=== PATIENT | male | born 1955 | race Caucasian/White ===

== ENCOUNTER → 2016-08-06 | Outpatient (CLI) | payer BC ==
[~2016-08-06] MED LIST: ASPEC81 PO; ATOR-26 PO; CLOP1TAB15 PO; PANT40TA PO; RANI300T2 PO
[2016-08-06 12:50] LABS: HEMATOCRIT 39.3 % (42-52); MEAN CELL VOLUME 89.9 fL (80-100); MEAN CORPUSCULAR HEMOGLOBIN 31.1 pg (25-34); MEAN CORPUSCULAR HGB CONC 34.6 g/dl (32-36); MEAN PLATELET VOLUME 10.4 fL (7.4-10.4); PLATELET COUNT 262 K/uL (130-400); RED BLOOD COUNT 4.37 M/uL (4.7-6.1); WHITE BLOOD COUNT 5.93 K/uL (4.8-10.8)
[2016-08-06 12:53] LABS: ALT/SGPT 24 U/L (12-78); AST/SGOT 13 U/L (15-37); BLOOD UREA NITROGEN 9 mg/dl (7-18); BUN/CREATININE RATIO 11.1 (10-20); CALCIUM 8.8 mg/dl (8.5-10.1); CARBON DIOXIDE 27 mmol/L (21-32); CHLORIDE 108 mmol/L (98-107); CREATININE 0.79 mg/dl (0.60-1.40); GLUCOSE 135 mg/dl (70-99); POTASSIUM 3.9 mmol/L (3.5-5.1); SODIUM 143 mmol/L (136-145)
[2016-08-06 12:56] LABS: CHOLESTEROL 97 mg/dl (0-200); CHOLESTEROL/HDL RATIO 3.2; HDL CHOLESTEROL 30 mg/dl; LDL CHOLESTEROL CALCULATED 47 mg/dl; TRIGLYCERIDES 98 mg/dl (0-150); VERY LOW DENSITY LIPOPROT CALC 20 mg/dl
[2016-08-06 13:11] LABS: ESTIMATED AVERAGE GLUCOSE 137 mg/dl; HA1C FLAG Normal (Normal)
== END | disposition home or self-care (01) ==
LOC: C.LABBFT 07:32
PROVIDERS: ATTEND Internal Medicine
DX: I73.9 Peripheral vascular disease, unspecified (principal); E78.00 Pure hypercholesterolemia, unspecified; R73.01 Impaired fasting glucose; C34.90 Malignant neoplasm of unspecified part of unspecified bronchus or lung

== ENCOUNTER → 2016-10-26 | Outpatient (CLI) | payer BC ==
--- NOTE | 2016-10-26 07:46 | DIAGNOSTIC IMAGING REPORT ---
CHEST CT WITHOUT CONTRAST CT DOSE: 372.11 mGy.cm HISTORY: I73.9 PAD (peripheral artery disease)R91.1 Solitary pulmonary nodule TECHNIQUE: Multiaxial CT images of the chest were performed without contrast. COMPARISON: Chest CT 04/27/2016. FINDINGS: Postoperative changes consistent with prior left upper lobectomy. Peripheral scarlike densities within the left midlung zone are similar to the prior study. Faint patchy area of groundglass densities are seen within the base of the left lower lobe. There is a 5 mm groundglass nodule within the right lung apex on image 72. No pleural effusions. No pneumothorax. The central airways are patent. Left-sided thoracotomy changes are again noted. Normal adrenal glands and spleen. A few small hypodense lesions within the liver remain stable. No mediastinal or hilar lymphadenopathy. IMPRESSION: 1. Faint patchy area of groundglass densities within the base of the left lower lobe and a new 5 mm groundglass nodule within the right lung apex. This may represent mild infectious change. Six-month follow-up is recommended to ensure resolution. 2. Postoperative changes consistent with left upper lobectomy. Stable peripheral scarlike densities within the left midlung zone. Electronically signed by: Kamran Pedraza M.D. 10/26/2016 7:44 AM Dictated Date/Time: 10/26/2016 7:38 AM
== END | disposition home or self-care (01) ==
LOC: C.CTS 06:55
PROVIDERS: ATTEND Surgery
DX: C34.90 Malignant neoplasm of unspecified part of unspecified bronchus or lung (principal); I73.9 Peripheral vascular disease, unspecified; R91.1 Solitary pulmonary nodule; Z85.118 Personal history of other malignant neoplasm of bronchus and lung

== ENCOUNTER → 2017-01-29 | Outpatient (CLI) | payer BC ==
[2017-01-29 12:30] LABS: HEMATOCRIT 42.5 % (42-52); MEAN CELL VOLUME 94.9 fL (80-100); MEAN CORPUSCULAR HEMOGLOBIN 30.6 pg (25-34); MEAN CORPUSCULAR HGB CONC 32.2 g/dl (32-36); MEAN PLATELET VOLUME 10.1 fL (7.4-10.4); PLATELET COUNT 247 K/uL (130-400); RED BLOOD COUNT 4.48 M/uL (4.7-6.1); WHITE BLOOD COUNT 5.79 K/uL (4.8-10.8)
[2017-01-29 13:00] LABS: ESTIMATED AVERAGE GLUCOSE 134 mg/dl; HA1C FLAG Normal (Normal)
[2017-01-29 13:25] LABS: ALB/GLOB RATIO 1.3 (0.9-2); ALKALINE PHOSPHATASE 65 U/L (45-117); ALT/SGPT 31 U/L (12-78); AST/SGOT 21 U/L (15-37); BLOOD UREA NITROGEN 11 mg/dl (7-18); BUN/CREATININE RATIO 13.3 (10-20); CALCIUM 9.1 mg/dl (8.5-10.1); CARBON DIOXIDE 30 mmol/L (21-32); CHLORIDE 108 mmol/L (98-107); CHOLESTEROL 115 mg/dl (0-200); CREATININE 0.84 mg/dl (0.60-1.40); GLUCOSE 113 mg/dl (70-99); POTASSIUM 4.4 mmol/L (3.5-5.1); SODIUM 139 mmol/L (136-145); TRIGLYCERIDES 95 mg/dl (0-150); VERY LOW DENSITY LIPOPROT CALC 19 mg/dl
[2017-01-29 13:30] LABS: CHOLESTEROL/HDL RATIO 3.8; HDL CHOLESTEROL 30 mg/dl; LDL CHOLESTEROL CALCULATED 66 mg/dl
== END | disposition home or self-care (01) ==
LOC: C.LABBFT 08:41
PROVIDERS: ATTEND Internal Medicine
DX: R73.01 Impaired fasting glucose (principal); E78.00 Pure hypercholesterolemia, unspecified; I73.9 Peripheral vascular disease, unspecified; C34.90 Malignant neoplasm of unspecified part of unspecified bronchus or lung; Z12.5 Encounter for screening for malignant neoplasm of prostate

== ENCOUNTER → 2017-04-29 | Outpatient (CLI) | payer BC ==
--- NOTE | 2017-04-29 07:59 | DIAGNOSTIC IMAGING REPORT ---
CT SCAN OF THE CHEST WITHOUT IV CONTRAST CLINICAL HISTORY: Follow-up lung cancer. COMPARISON STUDY: Chest CT scans dated 10/26/2016 and 01/01/2015. TECHNIQUE: CT scan of the thorax was performed from the thoracic inlet to the upper abdomen. Images are reviewed in the axial, sagittal, and coronal planes. IV contrast was not administered for this examination as per the referring clinician. A dose lowering technique was utilized adhering to the principles of ALARA. CT DOSE: 405.55 mGy.cm FINDINGS: Thyroid: Imaged portions of the thyroid gland are normal in size and attenuation. Thoracic aorta: There is atherosclerotic calcification of the thoracic aorta, which is normal in caliber and demonstrates bovine variant arch anatomy. Heart: The heart is normal in size and without pericardial effusion. Lungs and pleural spaces: Mild emphysema is observed. There is volume loss and postoperative change in the left upper lung consistent with previous surgical resection. No airspace consolidation is seen typical for pneumonia and there is no pleural effusion. The trachea and central airways are clear. Subpleural reticulation and fibrosis in the left upper lobe is similar to previous and likely represents treatment related change. No recurrent or residual pulmonary lesion is identified. A 2 mm left lower lobe nodule seen on image #179 and a 3 mm right middle lobe pulmonary nodule seen on image #193 have been present dating back to 2014 and are of doubtful significance. The 5 mm apical groundglass density seen on 10/26/2016 is most completely resolved. There is a 2 mm nodule at this site presently (axial image #68). Mediastinum: There is no mediastinal lymphadenopathy. Jaimie: Not well assessed without IV contrast. Axillae: There is no axillary lymphadenopathy. Upper abdomen: A subcentimeter hypodensity in the left hepatic lobe likely represents a cyst but is too small for definitive characterization. This is unchanged over multiple prior studies. The partially imaged kidneys symmetric cortical atrophy. No adrenal lesion is seen. Skeletal structures: The skeletal structures are osteopenic. Degenerative change is noted in the thoracic spine. Postoperative change is seen in the left sided ribs. No lytic or blastic bony lesions are seen. IMPRESSION: 1. There is no convincing evidence of recurrent or metastatic disease in the chest. 2. Mild emphysema with postoperative change in the left upper lobe as above. 3. Subpleural reticulation/fibrosis in the anterior left lung is unchanged from previous and likely represents treatment related change. 4. No airspace consolidation is seen typical for pneumonia and there is no pleural effusion. 5. Additional findings as above. Electronically signed by: Ruddy Nino M.D. 04/29/2017 7:58 AM Dictated Date/Time: 04/29/2017 7:52 AM
== END | disposition home or self-care (01) ==
LOC: C.CTS 06:23
PROVIDERS: ATTEND Surgery
DX: C34.90 Malignant neoplasm of unspecified part of unspecified bronchus or lung (principal)

== ENCOUNTER 2017-08-18 17:19 | Emergency (ER) | payer BC, OTHER ==
[~2017-08-18] VITALS: Ht 170.2 cm; Wt 86.7 kg
[2017-08-18 17:24] VITALS: TEMP 36.8; Ht 170.2 cm; Wt 86.7 kg
[2017-08-18] MEDS ORDERED: ONDANSETRON INJ 2 MG/ML 2 ML VIAL IV STA (17:47)
[2017-08-18] MEDS ORDERED: GI COCKTAIL PO STA (17:47)
--- NOTE | 2017-08-18 17:50 | EMERGENCY ROOM VISIT NOTE ---
History Report prepared by Araseli: Erik Russo Under the Supervision of: Dr. Jonh Richardson M.D. First contact with patient: 17:28 Chief Complaint: ABDOMINAL PAIN Stated Complaint: ABDOMINAL PAIN History of Present Illness The patient is a 62 year old male with a past medical history of hyperlipidemia, hypertension, acid reflux, and PAD who presents to the ED with a cc of intermittent, dull, abdominal pain beginning last night. Negative for urinary symptoms, nausea, and vomiting. The patient states that he woke up this morning and had a bowel movement. He notes that his pain feels like a "pressure from gas." He reports that he took three Gaviscon with no relief of his symptoms as well as a Tylenol with mild relief. The patient states that he also takes daily Plavix, aspirin, and medications for his acid reflux and hypertension. He notes that he also has a stent placed in his leg, resolved atrial fibrillation, and has had lung surgery in the past. He reports that has not traveled recently and has not experienced any recent trauma. Source of History: patient Onset: last night Position: abdomen Quality: dull, other ("pressure from gas") Timing: intermittent Modifying Factors (Relieving): other (tylenol) Associated Symptoms: No nausea, No vomiting, No urinary symptoms Review of Systems See HPI for pertinent positives and negatives. A total of ten systems were reviewed and were otherwise negative. Past Medical & Surgical Medical Problems: (1) Acid reflux (2) Afib (3) BPH (benign prostatic hyperplasia) (4) GERD (gastroesophageal reflux disease) (5) Hyperlipidemia (6) Hypertension (7) Lung cancer, upper lobe (8) PAD (peripheral artery disease) (9) Stenosis of lower extremity artery Family History Cancer Diabetes mellitus Social History Smoking Status: Former Smoker Alcohol Use: none Marital Status: Housing Status: lives with family Occupation Status: retired Current/Historical Medications Scheduled Aspirin Enteric Coated (Ecotrin Or Generic *), 81 MG PO QAM Atorvastatin (Lipitor), 80 MG PO HS Clopidogrel (Plavix), 75 MG PO QAM Lisinopril (Prinivil), 5 MG PO DAILY Pantoprazole (Protonix), 40 MG PO BID Ranitidine (Zantac), 300 MG PO HS Allergies Coded Allergies: Famotidine (Verified Allergy, Intermediate, RASH, 08/18/17) Cilostazol (Verified Adverse Reaction, Mild, pt unaware of this allergy- per records causes headaches , 08/18/17) Physical Exam Vital Signs Date Time Temp Pulse Resp B/P (MAP) Pulse Ox O2 Delivery O2 Flow Rate FiO2 08/18/17 19:11 146/92 08/18/17 18:49 68 17 98 Room Air 08/18/17 18:34 60 22 99 08/18/17 18:19 68 12 97 08/18/17 18:13 63 08/18/17 18:09 173/95 08/18/17 17:24 36.8 83 17 159/97 97 Room Air Physical Exam GENERAL: Awake, alert, well-appearing, NAD HENT: Normocephalic, atraumatic. EYES: Normal conjunctiva. Sclera non-icteric. NECK: Supple. No nuchal rigidity. FROM. RESPIRATORY: CTAB, no rhonchi, wheezing, crackles CARDIAC: RRR, no MRG ABDOMEN: Soft, NTND, BS+, negative obturators, negative psoas, negative Whittaker' s. MSK: No chest wall TTP, no LE edema, no CVA TTP. NEURO: GCS 15, CN 2-12 intact, moves all 4s on command SKIN: No rash or jaundice noted. Medical Decision & Procedures ER Provider Diagnostic Interpretation: Radiology results as stated below per my review and radiologist interpretation: KUB FINDINGS: 2 AP supine abdominal radiographs are correlated with abdominal CT dated 06/28/2006. There is a nonobstructed abdominal bowel gas pattern. Mild colonic fecal retention is noted. No evidence of intraperitoneal free air is seen on these supine views. There are no abnormal abdominal calcifications. The skeletal structures are osteopenic. Lumbosacral spondylosis is observed. IMPRESSION: Nonobstructed abdominal bowel gas pattern. Electronically signed by: Ruddy Nino M.D. 08/18/2017 7:24 PM Laboratory Results 08/18/17 18:04 Red Blood Count 4.54, Mean Corpuscular Volume 91.0, Mean Corpuscular Hemoglobin 31.1, Mean Corpuscular Hemoglobin Concent 34.1, Mean Platelet Volume 9.5, Neutrophils (%) (Auto) 70.1, Lymphocytes (%) (Auto) 18.1, Monocytes (%) (Auto) 10.0, Eosinophils (%) (Auto) 1.3, Basophils (%) (Auto) 0.3, Neutrophils # (Auto ) 7.39, Lymphocytes # (Auto) 1.91, Monocytes # (Auto) 1.06, Eosinophils # (Auto ) 0.14, Basophils # (Auto) 0.03 08/18/17 18:04 Test 08/18/17 18:04 08/18/17 18:05 08/18/17 18:07 White Blood Count 10.55 K/uL (4.8-10.8) Red Blood Count 4.54 M/uL (4.7-6.1) Hemoglobin 14.1 g/dL (14.0-18.0) Hematocrit 41.3 % (42-52) Mean Corpuscular Volume 91.0 fL (80-100) Mean Corpuscular Hemoglobin 31.1 pg (25-34) Mean Corpuscular Hemoglobin Concent 34.1 g/dl (32-36) Platelet Count 239 K/uL (130-400) Mean Platelet Volume 9.5 fL (7.4-10.4) Neutrophils (%) (Auto) 70.1 % Lymphocytes (%) (Auto) 18.1 % Monocytes (%) (Auto) 10.0 % Eosinophils (%) (Auto) 1.3 % Basophils (%) (Auto) 0.3 % Neutrophils # (Auto) 7.39 K/uL (1.4-6.5) Lymphocytes # (Auto) 1.91 K/uL (1.2-3.4) Monocytes # (Auto) 1.06 K/uL (0.11-0.59) Eosinophils # (Auto) 0.14 K/uL (0-0.5) Basophils # (Auto) 0.03 K/uL (0-0.2) RDW Standard Deviation 41.9 fL (36.4-46.3) RDW Coefficient of Variation 12.6 % (11.5-14.5) Immature Granulocyte % (Auto) 0.2 % Immature Granulocyte # (Auto) 0.02 K/uL (0.00-0.02) Anion Gap 6.0 mmol/L (3-11) Est Creatinine Clear Calc Drug Dose 93.4 ml/min Estimated GFR () 107.2 Estimated GFR (Non- 92.5 BUN/Creatinine Ratio 11.1 (10-20) Calcium Level 8.8 mg/dl (8.5-10.1) Total Bilirubin 0.6 mg/dl (0.2-1) Direct Bilirubin 0.1 mg/dl (0-0.2) Aspartate Amino Transf (AST/SGOT) 18 U/L (15-37) Alanine Aminotransferase (ALT/SGPT) 30 U/L (12-78) Alkaline Phosphatase 81 U/L (45-117) Total Protein 7.3 gm/dl (6.4-8.2) Albumin 3.9 gm/dl (3.4-5.0) Lipase 202 U/L (73-393) Urine Color YELLOW Urine Appearance CLEAR (CLEAR) Urine pH 6.5 (4.5-7.5) Urine Specific [place] 1.005 (1.000-1.030) Urine Protein NEG (NEG) Urine Glucose (UA) NEG (NEG) Urine Ketones NEG (NEG) Urine Occult Blood NEG (NEG) Urine Nitrite NEG (NEG) Urine Bilirubin NEG (NEG) Urine Urobilinogen NEG (NEG) Urine Leukocyte Esterase NEG (NEG) Bedside Troponin I < 0.030 ng/ml (0-0.045) Laboratory results reviewed by me Medications Administered Medications (Trade) Dose Ordered Sig/Dena Route Start Time Stop Time Status Last Admin Dose Admin Ondansetron HCl (Zofran Inj) 4 mg NOW STAT IV 08/18/17 17:47 08/18/17 17:49 DC 08/18/17 18:10 4 MG Al Hydroxide/Mg Hydroxide (Maalox Susp) 30 ml STK-MED ONCE .ROUTE 08/18/17 17:51 08/18/17 17:52 DC 08/18/17 18:10 30 ML Lidocaine HCl (Viscous Lidocaine 2% Soln) 20 ml STK-MED ONCE .ROUTE 08/18/17 17:51 08/18/17 17:52 DC 08/18/17 18:11 20 ML ECG Per My Interpretation Indication: abdominal pain Rate (beats per minute): 60 Rhythm: normal sinus Findings: T-wave inversion (lead 3), other (Normal intervals, normal axis, AVF present) Comparison ECG Date: 04/27/2016 Change: T wave inversions are old compared to prior. ED Course 1730: The patient was evaluated in room B11. A complete history and physical exam was performed. 2136: I reevaluated the patient. Discussed results and discharge instructions: He verbalized understanding and agreement. The patient is ready for discharge. Medical Decision Nursing notes reviewed. Ancillary studies and prior records reviewed. The patient is a 62 year old male with a past medical history of hyperlipidemia, hypertension, acid reflux, and PAD on ASA and Plavix who presents to the ED with a cc of intermittent, dull, abdominal pain beginning last night. Negative for urinary symptoms, nausea, and vomiting. Differential diagnosis: Etiologies such as appendicitis, diverticulitis, PUD, biliary pathology, UTI, pancreatitis, obstruction, mesenteric ischemia, aortic pathology, infections, inflammatory bowel disease, renal colic, as well as others were entertained. Patient was seen and evaluated at the bedside. Patient was complaining of some mild abdominal discomfort. He described it as intermittent and in the upper abdomen. Patient did try drinking some soda water and tried some Gaviscon without much relief. The patient denies any nausea vomiting. Patient did have recent bowel movement this morning. Patient does have a prior history of PAD status post stent placement and is on aspirin and Plavix. Patient denies any chest pains or shortness of breath. Patient did have blood work completed along with an EKG, troponin, and plain films. Patient was also given medications for symptom and a control. Patient' s EKG did show TW I in the inferior leads but these appear old and are not acute. Troponin negative. Less likely ACS or atypical chest pains. His other blood work is fairly unremarkable. Patient does have a KUB with a nonobstructive bowel gas pattern. On reassessment patient was feeling improved. Patient was told of his results and was told to continue [id number] treatment to follow-up with his primary care as needed. I do not believe he requires further imaging as the patient is well-appearing and feeling well. Patient was given strict follow-up , discharge, and return precautions. All questions were answered. Patient was deemed suitable for outpatient follow-up at this time. Patient agreed with the plan of care and was safely discharged home. Medication Reconcilliation Current Medication List: was personally reviewed by me Blood Pressure Screening Patient's blood pressure: Elevated blood pressure Blood pressure disposition: Referred to PCP Impression Primary Impression: Gastritis Scribe Attestation The scribe's documentation has been prepared under my direction and personally reviewed by me in its entirety. I confirm that the note above accurately reflects all work, treatment, procedures, and medical decision making performed by me. Departure Information Dispostion Home / Self-Care Referrals Bennie Barragan M.D. (PCP) Forms Call Back Authorization, HOME CARE DOCUMENTATION FORM, IMPORTANT VISIT INFORMATION Patient Instructions ED Gastritis, My Dayanara Larsen [facility] Additional Instructions Please return to the emergency department if you have worsening or recurrent symptoms not amenable to at-home treatment. Please call for a follow-up appointment with her primary care physician. Please take your medications as prescribed. If you have other concerns and/or complaints please feel free to also call your primary care physician's office or return the ED for further evaluation, management, and treatment. You may take tylenol 1000 mg every 6 hours as needed for pain. tylenol separately or at the same time. Take your medications as prescribed. You have been examined and treated today on an emergency basis only. This is not a substitute for, or an effort to provide, complete comprehensive medical care. It is impossible to recognize and treat all injuries or illnesses in a single emergency department visit. It is therefore important that you follow up closely with [facility], your PCP, and/or your specialist(s). Call as soon as possible for an appointment. Thank you for your time and consideration. I look forward to speaking with you again soon. Please don't hesitate to call us if you have any questions. Problem Qualifiers Primary Impression: Gastritis Gastritis type: unspecified gastritis Chronicity: unspecified Gastritis bleeding: presence of bleeding unspecified Qualified Codes: K29.70 - Gastritis, unspecified, without bleeding
[2017-08-18] MEDS ORDERED: ALUMINUM/MAGNESIUM SUSP 30 ML UDC ONE (17:51)
[2017-08-18] MEDS ORDERED: LIDOCAINE HCL 2% VISC SOLN 20 ML UDC ONE (17:51)
[2017-08-18 18:19] LABS: BASO % 0.3 %; BASO ABS # 0.03 K/uL (0-0.2); EOS % 1.3 %; EOS ABS # 0.14 K/uL (0-0.5); HEMATOCRIT 41.3 % (42-52); HEMOGLOBIN 14.1 g/dL (14.0-18.0); IG# 0.02 K/uL (0.00-0.02); LYMPH % 18.1 %; LYMPH ABS # 1.91 K/uL (1.2-3.4); MEAN CORPUSCULAR HEMOGLOBIN 31.1 pg (25-34); MEAN CORPUSCULAR HGB CONC 34.1 g/dl (32-36); MEAN PLATELET VOLUME 9.5 fL (7.4-10.4); MONO ABS # 1.06 K/uL (0.11-0.59); NEUT % 70.1 %; NEUT ABS # 7.39 K/uL (1.4-6.5); PLATELET COUNT 239 K/uL (130-400); RED CELL DISTRIBUTION WIDTH CV 12.6 % (11.5-14.5); RED CELL DISTRIBUTION WIDTH SD 41.9 fL (36.4-46.3); WHITE BLOOD COUNT 10.55 K/uL (4.8-10.8)
[2017-08-18] MEDS ORDERED: LISI-729 PO (18:21)
[2017-08-18 18:39] LABS: ALBUMIN 3.9 gm/dl (3.4-5.0); CALCIUM 8.8 mg/dl (8.5-10.1); CREATININE 0.84 mg/dl (0.60-1.40); POTASSIUM 3.7 mmol/L (3.5-5.1)
[2017-08-18 18:42] LABS: TOTAL PROTEIN 7.3 gm/dl (6.4-8.2)
--- NOTE | 2017-08-18 19:25 | DIAGNOSTIC IMAGING REPORT ---
KUB CLINICAL HISTORY: Generalized abdominal pain. FINDINGS: 2 AP supine abdominal radiographs are correlated with abdominal CT dated 06/28/2006. There is a nonobstructed abdominal bowel gas pattern. Mild colonic fecal retention is noted. No evidence of intraperitoneal free air is seen on these supine views. There are no abnormal abdominal calcifications. The skeletal structures are osteopenic. Lumbosacral spondylosis is observed. IMPRESSION: Nonobstructed abdominal bowel gas pattern. Electronically signed by: Ruddy Nino M.D. 08/18/2017 7:24 PM Dictated Date/Time: 08/18/2017 7:23 PM
[2017-08-18 19:31] VITALS: BP 169/87
[2017-08-18 19:46] VITALS: PULSE 76; O2SAT 100
== END 2017-08-18 19:51 | disposition home or self-care (01) ==
LOC: C.EDB 17:20
DX: K29.70 Gastritis, unspecified, without bleeding (principal); I10 Essential (primary) hypertension; E78.5 Hyperlipidemia, unspecified; K21.9 Gastro-esophageal reflux disease without esophagitis; I73.9 Peripheral vascular disease, unspecified; Z85.118 Personal history of other malignant neoplasm of bronchus and lung; Z87.891 Personal history of nicotine dependence; Z88.8 Allergy status to other drugs, medicaments and biological substances; Z83.3 Family history of diabetes mellitus; Z98.890 Other specified postprocedural states; Z79.02 Long term (current) use of antithrombotics/antiplatelets; Z79.82 Long term (current) use of aspirin; Z79.899 Other long term (current) drug therapy

== ENCOUNTER 2017-09-09 13:45 | Emergency (ER) | payer OTHER ==
[~2017-09-09] VITALS: Ht 170.2 cm; Wt 80.5 kg
[~2017-09-09 13:45] MED LIST changes: +ALUMCHW2 PO; -ASPEC81 PO; +ASPI81TA28 PO; +CRFL PO; +LISI-729 PO
[2017-09-09 13:47] VITALS: TEMP 36.7; Ht 170.2 cm; Wt 80.5 kg
[2017-09-09] MEDS ORDERED: SODIUM CHLORIDE 0.9% 1000ML 1,000 ML IV STA (14:33)
[2017-09-09] MEDS ORDERED: ONDANSETRON INJ 2 MG/ML 2 ML VIAL IV STA (14:33)
[2017-09-09 14:41] LABS: BASO % 0.5 %; BASO ABS # 0.03 K/uL (0-0.2); EOS ABS # 0.06 K/uL (0-0.5); HEMATOCRIT 39.8 % (42-52); HEMOGLOBIN 13.8 g/dL (14.0-18.0); IG# 0.01 K/uL (0.00-0.02); LYMPH % 23.9 %; MEAN CELL VOLUME 88.4 fL (80-100); MEAN CORPUSCULAR HEMOGLOBIN 30.7 pg (25-34); MEAN CORPUSCULAR HGB CONC 34.7 g/dl (32-36); MEAN PLATELET VOLUME 9.9 fL (7.4-10.4); MONO % 10.7 %; MONO ABS # 0.63 K/uL (0.11-0.59); NEUT % 63.7 %; NEUT ABS # 3.74 K/uL (1.4-6.5); PLATELET COUNT 204 K/uL (130-400); RED CELL DISTRIBUTION WIDTH CV 12.6 % (11.5-14.5); RED CELL DISTRIBUTION WIDTH SD 40.4 fL (36.4-46.3); WHITE BLOOD COUNT 5.87 K/uL (4.8-10.8)
[2017-09-09 15:02] LABS: ALBUMIN 3.4 gm/dl (3.4-5.0); CALCIUM 8.3 mg/dl (8.5-10.1); CREATININE 0.84 mg/dl (0.60-1.40); POTASSIUM 3.3 mmol/L (3.5-5.1)
[2017-09-09 15:05] LABS: TOTAL PROTEIN 7.8 gm/dl (6.4-8.2)
[2017-09-09] MEDS ORDERED: POTASSIUM CHLORIDE 20 MEQ TABCR PO STA (15:47)
[2017-09-09] MEDS ORDERED: POTASSIUM CHLORIDE 10 MEQ TABCR ONE (16:09)
[2017-09-09 16:25] VITALS: BP 170/94; PULSE 76; O2SAT 96
--- NOTE | 2017-09-09 19:44 | EMERGENCY ROOM VISIT NOTE ---
History Report prepared by Araseli: Diego Herron Under the Supervision of: Dr. Donato Garcia D.O. First contact with patient: 14:01 Chief Complaint: DIARRHEA Stated Complaint: COUGH,CHEST CONGESTION,CANT EAT,WEAKNESS History of Present Illness The patient is a 62 year old male who presents to the Emergency Room with complaints of persistent diarrhea that he has been experiencing for the past 4 days. The patient states that his symptoms began on the 18th, 8 days ago, when he developed a cough that was producing "yellowish mucous." He visited with his primary care office who prescribed him Augmentin. He was also give Nystatin "Swish and Swallow" for Thrush. Since starting the Augmentin he has developed the diarrhea. He also complains that he is nauseous, but is not vomiting. He has no appetite to eat. He denies any abdominal pain. The patient did add that he had a fever of 100.9 degrees 5 days ago. He denies any recent travel or history of C. difficile. Source of History: patient Onset: 4 days ago Position: abdomen Quality: other (diarrhea ) Timing: other (persistent) Associated Symptoms: + nausea, No vomiting, No abdominal pain Review of Systems See HPI for pertinent positives & negatives. A total of 10 systems reviewed and were otherwise negative. Past Medical & Surgical Medical Problems: (1) Acid reflux (2) Afib (3) BPH (benign prostatic hyperplasia) (4) GERD (gastroesophageal reflux disease) (5) Hyperlipidemia (6) Hypertension (7) Lung cancer, upper lobe (8) PAD (peripheral artery disease) (9) Stenosis of lower extremity artery Family History Cancer Diabetes mellitus Social History Smoking Status: Never Smoker Alcohol Use: none Marital Status: Housing Status: lives with family Occupation Status: retired Current/Historical Medications Scheduled Aluminum Hydroxide-Mag Trisil (Gaviscon), 1 TAB PO DIRECTED Aspirin (Aspirin Ec), 81 MG PO DAILY Atorvastatin (Lipitor), 80 MG PO HS Clopidogrel (Plavix), 75 MG PO QAM Lisinopril (Prinivil), 5 MG PO DAILY Pantoprazole (Protonix), 40 MG PO BID Ranitidine (Zantac), 300 MG PO HS Sucralfate (Carafate), 10 ML PO QID Allergies Coded Allergies: Famotidine (Verified Allergy, Intermediate, RASH, 09/09/17) Cilostazol (Verified Adverse Reaction, Mild, pt unaware of this allergy- per records causes headaches , 09/09/17) Physical Exam Vital Signs Date Time Temp Pulse Resp B/P (MAP) Pulse Ox O2 Delivery O2 Flow Rate FiO2 09/09/17 16:25 76 18 170/94 96 09/09/17 15:43 74 18 149/85 97 Room Air 09/09/17 13:47 36.7 95 20 143/86 95 Room Air Physical Exam GENERAL: Sitting up in bed, alert, well appearing, well nourished, no distress, non-toxic EYE EXAM: normal conjunctiva. OROPHARYNX: no exudate, no erythema, lips, buccal mucosa, and tongue normal and mucous membranes are moist NECK: supple, no nuchal rigidity, no adenopathy, non-tender LUNGS: Clear to auscultation. Normal chest wall mechanics HEART: no murmurs, S1 normal and S2 normal ABDOMEN: abdomen soft, non-tender, normo-active bowel sounds, no masses, no rebound or guarding. BACK: Back is symmetrical on inspection and there is no deformity, no midline tenderness, no CVA tenderness. SKIN: no rashes and no bruising UPPER EXTREMITIES: upper extremities are grossly normal. LOWER EXTREMITIES: No pitting edema. NEURO EXAM: Normal sensorium, cranial nerves II-XII grossly intact, normal speech, no gross weakness of arms, no gross weakness of legs. Medical Decision & Procedures Laboratory Results 09/09/17 14:27 Red Blood Count 4.50, Mean Corpuscular Volume 88.4, Mean Corpuscular Hemoglobin 30.7, Mean Corpuscular Hemoglobin Concent 34.7, Mean Platelet Volume 9.9, Neutrophils (%) (Auto) 63.7, Lymphocytes (%) (Auto) 23.9, Monocytes (%) (Auto) 10.7, Eosinophils (%) (Auto) 1.0, Basophils (%) (Auto) 0.5, Neutrophils # (Auto ) 3.74, Lymphocytes # (Auto) 1.40, Monocytes # (Auto) 0.63, Eosinophils # (Auto ) 0.06, Basophils # (Auto) 0.03 09/09/17 14:27 Test 09/09/17 14:20 09/09/17 14:27 Urine Color YELLOW Urine Appearance CLEAR (CLEAR) Urine pH 6.5 (4.5-7.5) Urine Specific [place] 1.009 (1.000-1.030) Urine Protein NEG (NEG) Urine Glucose (UA) NEG (NEG) Urine Ketones NEG (NEG) Urine Occult Blood NEG (NEG) Urine Nitrite NEG (NEG) Urine Bilirubin NEG (NEG) Urine Urobilinogen NEG (NEG) Urine Leukocyte Esterase NEG (NEG) Urine WBC (Auto) 1-5 /hpf (0-5) Urine RBC (Auto) 0-4 /hpf (0-4) Urine Hyaline Casts (Auto) 0 /lpf (0-5) Urine Epithelial Cells (Auto) 0-5 /lpf (0-5) Urine Bacteria (Auto) NEG (NEG) White Blood Count 5.87 K/uL (4.8-10.8) Red Blood Count 4.50 M/uL (4.7-6.1) Hemoglobin 13.8 g/dL (14.0-18.0) Hematocrit 39.8 % (42-52) Mean Corpuscular Volume 88.4 fL (80-100) Mean Corpuscular Hemoglobin 30.7 pg (25-34) Mean Corpuscular Hemoglobin Concent 34.7 g/dl (32-36) Platelet Count 204 K/uL (130-400) Mean Platelet Volume 9.9 fL (7.4-10.4) Neutrophils (%) (Auto) 63.7 % Lymphocytes (%) (Auto) 23.9 % Monocytes (%) (Auto) 10.7 % Eosinophils (%) (Auto) 1.0 % Basophils (%) (Auto) 0.5 % Neutrophils # (Auto) 3.74 K/uL (1.4-6.5) Lymphocytes # (Auto) 1.40 K/uL (1.2-3.4) Monocytes # (Auto) 0.63 K/uL (0.11-0.59) Eosinophils # (Auto) 0.06 K/uL (0-0.5) Basophils # (Auto) 0.03 K/uL (0-0.2) RDW Standard Deviation 40.4 fL (36.4-46.3) RDW Coefficient of Variation 12.6 % (11.5-14.5) Immature Granulocyte % (Auto) 0.2 % Immature Granulocyte # (Auto) 0.01 K/uL (0.00-0.02) Anion Gap 7.0 mmol/L (3-11) Est Creatinine Clear Calc Drug Dose 90.3 ml/min Estimated GFR () 107.2 Estimated GFR (Non- 92.5 BUN/Creatinine Ratio 7.8 (10-20) Calcium Level 8.3 mg/dl (8.5-10.1) Total Bilirubin 0.5 mg/dl (0.2-1) Direct Bilirubin 0.2 mg/dl (0-0.2) Aspartate Amino Transf (AST/SGOT) 28 U/L (15-37) Alanine Aminotransferase (ALT/SGPT) 47 U/L (12-78) Alkaline Phosphatase 75 U/L (45-117) Total Protein 7.8 gm/dl (6.4-8.2) Albumin 3.4 gm/dl (3.4-5.0) Lipase 194 U/L (73-393) Date/Time Source Procedure Growth Status 09/09/17 14:20 Stool C.difficile Toxin B Gene (PCR) - Final No C. difficile toxin B gene detected Complete Laboratory results per my review. Medications Administered Medications (Trade) Dose Ordered Sig/Dena Route Start Time Stop Time Status Last Admin Dose Admin Sodium Chloride 1,000 ml @ 999 mls/hr Q1H1M STAT IV 09/09/17 14:33 09/09/17 15:33 DC 09/09/17 14:39 999 MLS/HR Potassium Chloride (Klor-Con M10) 40 meq STK-MED ONCE .ROUTE 09/09/17 16:09 09/09/17 16:10 DC 09/09/17 16:21 40 MEQ ED Course ED COURSE: Vital signs were reviewed and showed hypertensive blood pressure. The patients medical record was reviewed The above diagnostic studies were performed and reviewed. ED treatments and interventions as stated above. 1404: The patient was evaluated in room B11B. A complete history and physical examination was performed. 1433: Ordered Zofran 4 mg IV, Sodium Chloride 1000 mL @ 999 mL/hr IV. 1547: Potassium Chloride 40 meq PO. 1558: Upon reevaluation, the patient is resting in bed.I discussed my findings with the patient and he understands and agrees with the treatment plan. Based on the patients age, coexisting illnesses, exam and lab findings the decision to treat as an outpatient was made. The patient remained stable while under my care. The patient appeared well at the time of discharge. Medical Decision Differential diagnoses includes but is not limited to gastritis, peptic ulcer disease, GERD, gallbladder disease, pancreatitis, small bowel obstruction, acute coronary syndrome, pericarditis, ischemic bowel, irritable bowel disease, irritable bowel syndrome, appendicitis, diverticulitis, malignancy, hernia, urinary tract infection, torsion, perforation, trauma, infectious. Patient is a 62-year-old male who presents to ER for cough associated with a yellow and green productive sputum which is been present for the past week and now improving as he was placed on Augmentin. He presents today because he has had 4 days worth of diarrhea which is been fairly persistent. He notes he does not want to eat but has no abdominal pain or vomiting. He is able to tolerate fluids and food when he does eat. Vitals are unremarkable. CBC along with BMP , LFTs, bilirubin lipase shows a mild hypokalemia. UA was negative. C. difficile was negative. Patient was updated at bedside. I favor the diarrhea secondary to the Augmentin. Patient was discharged follow-up with PCP as an outpatient. Discussed with Pt concerning signs and symptoms to watch out for. Pt was instructed to follow up with their PCP and discussed with the patient their option to return to the ED at anytime for persistent or worsening symptoms. The appropriate anticipatory guidance and out-patient management, including indications for return to the emergency department, were explained at length to the patient and understood. Medication Reconcilliation Current Medication List: was personally reviewed by me Blood Pressure Screening Patient's blood pressure: Elevated blood pressure Blood pressure disposition: Elevated BP felt to be situational Impression Primary Impression: Diarrhea Additional Impression: Hypokalemia Scribe Attestation The scribe's documentation has been prepared under my direction and personally reviewed by me in its entirety. I confirm that the note above accurately reflects all work, treatment, procedures, and medical decision making performed by me. Departure Information Dispostion Home / Self-Care Referrals Bennie Barragan M.D. (PCP) Forms HOME CARE DOCUMENTATION FORM, IMPORTANT VISIT INFORMATION, WORK / SCHOOL INSTRUCTIONS Patient Instructions My [facility] Additional Instructions Please follow up with your primary care doctor with in the next 24 hours. Any worsening of your symptoms, please return to the ED immediately. This includes any fevers greater than 100.4, worsening pain, chest pain, shortness breath, persistent nausea, vomiting, unable to eat or drink, or any other concerning signs or symptoms from your standpoint. Please continue to remain as hydrated as possible. Problem Qualifiers Primary Impression: Diarrhea Diarrhea type: unspecified type Qualified Codes: R19.7 - Diarrhea, unspecified
== END 2017-09-09 16:24 | disposition home or self-care (01) ==
LOC: C.EDB 13:47
DX: R19.7 Diarrhea, unspecified (principal); E87.6 Hypokalemia; I48.91 Unspecified atrial fibrillation; K21.9 Gastro-esophageal reflux disease without esophagitis; E78.5 Hyperlipidemia, unspecified; I10 Essential (primary) hypertension; I73.9 Peripheral vascular disease, unspecified; Z85.118 Personal history of other malignant neoplasm of bronchus and lung; Z88.8 Allergy status to other drugs, medicaments and biological substances; Z83.3 Family history of diabetes mellitus; Z79.02 Long term (current) use of antithrombotics/antiplatelets; Z79.82 Long term (current) use of aspirin; Z79.899 Other long term (current) drug therapy

== ENCOUNTER → 2017-09-30 | Day surgery (SDC) | payer OTHER ==
[2017-09-06 16:18] VITALS: Ht 171.5 cm; Wt 85.0 kg
[~2017-09-30] VITALS: Ht 171.5 cm; Wt 85.0 kg
[~2017-09-30] MED LIST changes: +FENTANYL CITRATE INJ 50 MCG/1 ML 2 ML VIAL ONE; +LIDOCAINE HCL 2% 2 ML VIAL (20MG/ML) ONE; +ONDANSETRON INJ 2 MG/ML 2 ML VIAL ONE; +PROPOFOL IV EMULSION 10 MG/ML 20 ML VIAL ONE
--- NOTE | 2017-09-30 15:05 | Endo History and Physical ---
History & Physical Date of Service: September 30, 2017. Chief Complaint: ABDOMINAL/EPIGASTRIC PAIN, GERD W/O ESOPHAGITIS Referring Physician: DR BILLY History of Present Illness 62 yo CM who presents for EGD secondary to epigastric abdominal pain and GERD. Past Medical History Arthritis, Reflux, High Cholesterol, Other Past Surgical History Hx Cardiac Surgery: Yes (CARDIAC CATH-NO STENT-2007?) Hx Abdominal Surgery: No Hx of Implantable Prosthesis: No Hx Post-Op Nausea and Vomiting: No Hx Cancer Surgery: Yes (L LUNG CANCER 05/2015 ) Hx Thoracic Surgery: No Hx Orthopedic: No Hx Urinary Tract Surgery: Yes (HYDROCELECTOMY) Social History Smoking Status: Never Smoker Hx Substance Use: No Hx Alcohol Use: Yes (OCC BEER) Allergies Coded Allergies: Famotidine (Verified Allergy, Intermediate, RASH, 09/30/17) Cilostazol (Verified Adverse Reaction, Mild, pt unaware of this allergy- per records causes headaches , 09/30/17) Current Medications Reported Home Medications Medications Dose Route/Sig Max Daily Dose Days Date Category Gaviscon (Aluminum Hydroxide-Mag Trisil) 1 Chw Chw 1 Tab PO DIRECTED 09/06/17 Reported Aspirin Ec (Aspirin) 81 Mg Tab 81 Mg PO DAILY 09/06/17 Reported Prinivil (Lisinopril) 5 Mg Tab 5 Mg PO DAILY 08/18/17 Reported Zantac (Ranitidine HCl) 300 Mg Tab 300 Mg PO HS 01/01/15 Reported Lipitor (Atorvastatin Calcium) 80 Mg Tab 80 Mg PO HS 10/23/13 Reported Protonix (Pantoprazole Sodium) 40 Mg Tab 40 Mg PO BID 10/23/13 Reported Plavix (Clopidogrel Bisulfate) 75 Mg Tab 75 Mg PO QAM 04/29/09 Reported Vital Signs Weight (Kilograms): 85 Height (Feet): 5 Height (Inches): 7.5 Date Time Temp Pulse Resp B/P (MAP) Pulse Ox O2 Delivery O2 Flow Rate FiO2 09/30/17 14:07 36.5 69 18 163/85 (111) 98 Room Air Physical Exam General Appearance: WD/WN, no apparent distress Respiratory/Chest: Auscultation: breath sounds normal Cardiovascular: Heart Auscultation: RRR Abdomen: Bowel Sounds: normal Inspection & Palpation: soft, non-distended, no tenderness, guarding & rebound Assessment and Plan Assessment: 62 yo CM who presents for EGD secondary to epigastric abdominal pain and GERD. Plan: Proceed with EGD
--- NOTE | 2017-09-30 15:30 | Anesthesiology Progress Note ---
Anesthesia Post Op Note Date & Time September 30, 2017 at 15:30 Vital Signs Pain Intensity: 0 Vital Signs Past 12 Hours Date Time Temp Pulse Resp B/P (MAP) Pulse Ox O2 Delivery O2 Flow Rate FiO2 09/30/17 14:07 36.5 69 18 163/85 (111) 98 Room Air Notes Mental Status: alert / awake / arousable, participated in evaluation Pt Amnestic to Procedure: Yes Nausea / Vomiting: adequately controlled Pain: adequately controlled Airway Patency, RR, SpO2: stable & adequate BP & HR: stable & adequate Hydration State: stable & adequate Anesthetic Complications: no major complications apparent
--- NOTE | 2017-09-30 15:48 | Discharge Instructions ---
Endoscopy Patient Instructions Date / Procedure(s) Performed September 30, 2017. EGD Allergy Information Coded Allergies: Famotidine (Verified Allergy, Intermediate, RASH, 09/30/17) Cilostazol (Verified Adverse Reaction, Mild, pt unaware of this allergy- per records causes headaches , 09/30/17) Discharge Date / Findings September 30, 2017. Biopsies of the distal esophagus Medication Instructions Stopped Medication(s): ASPIRIN 81MG AND PLAVIX LAST DOSE 09/25/17 Reported Home Medications Medications Dose Route/Sig Max Daily Dose Days Date Category Gaviscon (Aluminum Hydroxide-Mag Trisil) 1 Chw Chw 1 Tab PO DIRECTED 09/06/17 Reported Aspirin Ec (Aspirin) 81 Mg Tab 81 Mg PO DAILY 09/06/17 Reported Prinivil (Lisinopril) 5 Mg Tab 5 Mg PO DAILY 08/18/17 Reported Zantac (Ranitidine HCl) 300 Mg Tab 300 Mg PO HS 01/01/15 Reported Lipitor (Atorvastatin Calcium) 80 Mg Tab 80 Mg PO HS 10/23/13 Reported Protonix (Pantoprazole Sodium) 40 Mg Tab 40 Mg PO BID 10/23/13 Reported Plavix (Clopidogrel Bisulfate) 75 Mg Tab 75 Mg PO QAM 04/29/09 Reported OK to resume all medications today as prescribed Provider Instructions Activity Restrictions - No exercising or heavy lifting for 24 hours. - Do not drink alcohol the day of the procedure. - Do not drive a car or operate machinery until the day after the procedure. - Do not make any important decisions or sign important papers in 24 hours after the procedure. Following Day: - Return to full activity which may include returning to work/school. Diet Start your diet with liquids and light foods (jello, soup, juice, toast). Then eat your usual diet if not nauseated. Treatment For Common After Affects For mild abdominal pain, bloating, or excessive gas: - Rest - Eat lightly - Lie on right side Follow-Up Information Follow-up with DR BILLY as scheduled Anesthesia Information What You Should Know You have had a procedure that required some medicine to reduce anxiety and discomfort. This treatment is called moderate sedation. After receiving the treatment, you may be sleepy, but you will be able to breathe on your own. The effects of the treatment may last for several hours. Follow these instructions along with Activity/Diet recommendations noted above: * Do NOT do anything where dizziness or clumsiness would be dangerous. * Rest quietly at home today, then you can be up and about tomorrow. * Have a responsible person stay with you the rest of today. * You may have had an I.V. today. If so, you may take the dressing off later today. Recommendations Call your doctor if: * Trouble breathing * Continuous vomiting for more than 24 hours * Temperature above 101 degrees * Severe abdominal pain or bloating * Pain not relieved by pain medicine ordered * There is increased drainage or redness from any incision * A large amount of rectal bleeding greater than 2-3 tablespoons. (If you had a polyp/s removed or have hemorrhoids, a small amount of blood - from the rectum is to be expected.) * You have any unanswered questions or concerns. IN THE EVENT OF A SERIOUS EMERGENCY, GO TO THE NEAREST EMERGENCY ROOM Your discharge instructions were prepared by provider Tu Lin. Patient Instructions Signature Page Irwin Camarena Patient (or Guardian) Signature/Date: I have read and understand the instructions given to me by my caregivers. Caregiver/RN/Doctor Signature/Date: The above-named patient and/or guardian has received patient instructions on this date. + Original Patient Signature Page (only) stays with chart. Please make copy for patient.
--- NOTE | 2017-09-30 15:54 | GI REPORT ---
Patient Name: Irwin Camarena Procedure Date: 09/30/2017 3:07 PM Date of : 1955 Admit Type: Outpatient Age: 62 Gender: Male Attending MD: Tu Lin DO Procedure: Upper GI endoscopy Providers: Tu Lin DO Referring MD: Em Rincon Indications: Epigastric abdominal pain, Gastro-esophageal reflux disease Medicines: Monitored Anesthesia Care Complications: No immediate complications. Estimated Blood Loss: Estimated blood loss: none. Procedure: Pre-Anesthesia Assessment: - Prior to the procedure, a History and Physical was performed, and patient medications and allergies were reviewed. The patient's tolerance of previous anesthesia was also reviewed. The risks and benefits of the procedure and the sedation options and risks were discussed with the patient. All questions were answered, and informed consent was obtained. Prior Anticoagulants: The patient last took aspirin 5 days and Plavix (clopidogrel) 5 days prior to the procedure. ASA Grade Assessment: III - A patient with severe systemic disease. After reviewing the risks and benefits, the patient was deemed in satisfactory condition to undergo the procedure. After obtaining informed consent, the endoscope was passed under direct vision. Throughout the procedure, the patient's blood pressure, pulse, and oxygen saturations were monitored continuously. The scope was introduced through the mouth, and advanced to the second part of duodenum. The upper GI endoscopy was accomplished without difficulty. The patient tolerated the procedure well. Findings: The Z-line was irregular and was found 38 cm from the incisors. Biopsies were taken with a cold forceps for histology. The stomach was normal. The examined duodenum was normal. Impression: - Z-line irregular, 38 cm from the incisors. Biopsied. - Normal stomach. - Normal examined duodenum. Recommendation: - Resume previous diet. - Continue present medications. - Await pathology results. - Return to primary care physician as previously scheduled. Tu Lin DO 09/30/2017 3:54:34 PM This report has been signed electronically. Note Initiated On: 09/30/2017 3:07 PM Number of Addenda: 0 I attest to the content of the Intraoperative Record and orders documented therein, exceptions below {[id number]}
[2017-09-30 16:16] VITALS: BP 156/86; PULSE 72; O2SAT 100
== END | disposition home or self-care (01) ==
LOC: C.GI 13:24
PROVIDERS: ATTEND Internal Medicine
DX: R10.13 Epigastric pain (principal); K21.0 Gastro-esophageal reflux disease with esophagitis; E78.00 Pure hypercholesterolemia, unspecified; Z88.8 Allergy status to other drugs, medicaments and biological substances; Z85.118 Personal history of other malignant neoplasm of bronchus and lung; Z79.82 Long term (current) use of aspirin; Z79.02 Long term (current) use of antithrombotics/antiplatelets

== ENCOUNTER 2019-05-31 16:39 | Observation (INO) ==
[2019-05-31] MEDS ORDERED: dilTIAZem HCl 5 MG/ML 5 ML VIAL IV STA ×2 (16:57→17:39)
[2019-05-31] MEDS ORDERED: dilTIAZem HCl 5 MG/ML 5 ML VIAL IV ONE (16:57)
[2019-05-31] MEDS ORDERED: SODIUM CHLORIDE 0.9% 1000ML 1,000 ML IV SCH (17:00)
[2019-05-31 17:05] LABS: Basophils # (auto) 0.02 K/uL (0-0.2); Basophils % (auto) 0.2 %; Eosinophils # (auto) 0.14 K/uL (0-0.5); Eosinophils % (auto) 1.4 %; Hematocrit (blood only) 43.7 % (42-52); Hemoglobin 15.1 g/dL (14.0-18.0); Immature Granulocytes # (auto) 0.03 K/uL (0.00-0.02); Immature Granulocytes % (auto) 0.3 %; Lymphocytes # (auto) 2.07 K/uL (1.2-3.4); Lymphocytes % (auto) 20.9 %; Mean Corpuscular Hemoglobin 31.5 pg (25-34); Mean Corpuscular Hgb Conc 34.6 g/dL (32-36); Mean Corpuscular Volume 91.2 fL (80-100); Monocytes # (auto) 1.15 K/uL (0.11-0.59); Monocytes % (auto) 11.6 %; Neutrophils # (auto) 6.49 K/uL (1.4-6.5); Neutrophils % (auto) 65.6 %; Platelet Count 226 K/uL (130-400); RDW Coefficient of Variation 12.9 % (11.5-14.5); RDW Standard Deviation 42.9 fL (36.4-46.3); Red Blood Count 4.79 M/uL (4.7-6.1)
[2019-05-31 17:29] LABS: Alanine Aminotransferase 32 U/L (12-78); Albumin Level 3.8 gm/dl (3.4-5.0); Aspartate Aminotransferase 17 U/L (15-37); BUN Creatinine Ratio 10.4 (10-20); Blood Urea Nitrogen 8 mg/dl (7-18); Calcium 8.8 mg/dl (8.5-10.1); Carbon Dioxide 26 mmol/L (21-32); Chloride 109 mmol/L (98-107); Creatinine Clr Calc Pharmacy 94.6 ml/min; Est GFR (African American) 107.9; Est GFR (Non-African American) 93.1; Glucose 129 mg/dl (70-99); Sodium 140 mmol/L (136-145)
--- NOTE | 2019-05-31 17:35 | XRay Report ---
XR chest 1V portable CLINICAL HISTORY: palpitations COMPARISON STUDY: 05/18/2018 FINDINGS: The cardiac and mediastinal contours remain stable. Surgical clips are present in the left mediastinal region. There are chronic peripheral left midlung zone opacities. There is no acute paren chymal consolidation. There is no failure. There are no pleural effusions. A vague right midlung zone opacities felt to represent a summation with rib and scapula.[ IMPRESSION: Chronic postsurgical and posttreatment changes within the left lung. No acute findings. ACT 112: Negative or not required by law. Electronically signed by: Corbin Arenas M.D. 05/31/2019 5:34 PM
[2019-05-31] MEDS ORDERED: POTASSIUM CHLORIDE 20 MEQ TABCR PO STA (17:39)
[2019-05-31] MEDS ORDERED: MAGNESIUM SULFATE / D5W 1 GM/100 ML BAG IV ONE (17:39)
[2019-05-31] MEDS ORDERED: POTASSIUM ACETATE 10 MEQ in 0.9 % SODIUM CHLORIDE 100 ML IV ONE (17:39)
[2019-05-31 17:43] LABS: Alkaline Phosphatase 93 U/L (45-117); Bilirubin,Total 0.8 mg/dl (0.2-1); Magnesium 0.9 mg/dl (1.8-2.4); Total Protein 7.8 gm/dl (6.4-8.2); Troponin I < 0.015 ng/ml (0-0.045)
[2019-05-31] MEDS: dilTIAZem HCL 125 MG in DEXTROSE 5% 100 ML IV SCH (17:43)
[2019-05-31] MEDS ORDERED: POTASSIUM CHLORIDE / WTR 10 MEQ/100 ML PLCT IV STA (17:51)
[2019-05-31] MEDS ORDERED: HEPARIN SOD 5,000 UNIT/0.5 ML VIAL ONE (18:57)
[2019-05-31] MEDS ORDERED: METOPROLOL TARTRATE 1 MG/ML VIAL IV STA (18:58)
[2019-05-31] MEDS: MAGNESIUM SULFATE / D5W 1 GM/100 ML BAG IV SCH ×3 (18:59→20:01)
[2019-05-31] MEDS: HEPARIN SODIUM/DEXTROSE 25,000 UNITS/500 ML BAG IV SCH (19:00)
[2019-05-31 19:10] LABS: INR 1.1 (0.9-1.1); Prothrombin Time 10.9 Seconds (9.0-12.0)
--- NOTE | 2019-05-31 19:45 | History & Physical Report ---
Date of Service May 31, 2019 Assessment & Plan (1) Atrial fibrillation with rapid ventricular response: Second occurrence, although initial episode 4 years ago was provoked by thoracic surgery. HR 110-120 on diltiazem drip 15ml/hr therefore given x1 dose metoprolol 5mg IV Start metoprolol tartrate 25 mg Q6H and plan to wean off diltiazem drip as able to aim HR <100 Aim for rate control as unclear how long he has truly been in a. fib as having palpitations at night for some 3-4 months. Anticoagulation with heparin IV. Given PAD he has a strong likelihood of CAD, especially with ST depressions in anterior leads in setting of tachycardia. Therefore will keep him NPO after midnight in case a cardiac cath is required. Echo ordered for tomorrow hopefully when rate is better controlled. (2) Hypomagnesemia: Suspect related to PPI use and recent discontinuation of his daily supplement. Mg sulphate 4g IV given. (3) Acute hypokalemia: K 3.0. Replaced in ER with KCl 40 meq PO and x2 10meq IV K rider. Repeat with AM labs. (4) Abnormal EKG: Rate related ischemic changes with ST depression in anterior leads and TWI in inferior leads. Will trend troponins however low suspicion of ACS without chest pain or shortness of breath. (5) PAD (peripheral artery disease): Continue ASA and atorvastatin Will hold clopidogrel as suspect dual anticoagulation/antiplatelet therapy is adequate but this can always be restarted if felt needed by cardiology. (6) Acid reflux: Continue pantoprazole 40mg BID (7) Lung cancer, upper lobe: s/p left upper lobe lobectomy for stage 1a adenocarcinoma (8) DVT prophylaxis: On IV heparin drip History of Present Illness Chief Complaint: Dizziness Primary Care Provider: Bennie Barragan MD Irwin Camarena is a 64 year old male with on prior episode of provoked atrial fibrillation who presents to the ER with palpitations and dizziness. His prior episode of atrial fibrillation was in the setting of left lower lobe lobectomy 4 years ago and resolved within hours but he had be transferred to ICU at the [facility]. He was placed on Xarelto for 4 weeks at that time and has had no known recurrence since. On this occasion his symptoms started suddenly around 4pm. In the ER he was noted to be in atrial fibrillation with rapid ventricular rate, treated with IV heparin drip and diltiazem 10mg + 15mg IV bolus and then IV drip currently running at 15mg/hr. Heart rate when seen was between 110-120 bpm. He denies any current chest pain, dizziness, shortness of breath. With regards to his hypomagnesemia he is on [facility] PPI use and stopped a daily multivitamin approximately 2 weeks ago. He does note a 3-4 month history of occasional chest pains at rest or on exertion in addition to occasional palpitations that wake him up at night. These have not been getting worse. He has also noticed increased fatigue over the past 2 weeks. Allergies Allergy/AdvReac Type Severity Reaction Status Date / Time famotidine Allergy Intermediate Rash Verified 05/31/19 17:29 cilostazol AdvReac Mild pt unaware Verified 05/31/19 17:29 of this allergy- per records causes headaches Home Medications Home Medications Medication Instructions Recorded Confirmed Type aspirin 81 mg PO QAM 05/18/18 05/31/19 History atorvastatin 80 mg tablet 80 mg PO HS #30 tab 12/23/18 05/31/19 Rx clopidogrel 75 mg tablet 75 mg PO QAM #30 tab 02/20/19 05/31/19 Rx pantoprazole 40 mg tablet,delayed 40 mg PO BID #60 tab 05/09/19 05/31/19 Rx release lisinopril 40 mg PO QAM 05/31/19 05/31/19 History Past Med/Surg History Medical History BPH (benign prostatic hyperplasia) Hyperlipidemia Hypertension Lung cancer, upper lobe PAD (peripheral artery disease) Surgical History S/P lobectomy of lung Family History Brother Lung cancer Other Family history non-contributory Social History Preferred Language: Urdu Beliefs That Will Affect Care: None Current Living Situation: Spouse Feels Safe at Home: Yes Safety Concerns: Feels Safe At This Time Smoking Status: Never smoker Tobacco Type: cigarettes ; Age Started Using Tobacco: 14 ; Age Quit Using Tobacco: 60 ; packs per day: 1.5 ; Cigarettes Per Day: 30 ; Number of Years Since Quit: 3 ; Second Hand Exposure: No ; Hx Alcohol Use: No Hx Substance Use: No Review of Systems Review of Systems: All systems reviewed & are unremarkable except as noted in HPI & below Physical Exam Constitutional: WD/WN, vitals as above Eyes: + anicteric sclerae; normal pupil size ENMT: external ear and nose normal, oropharynx normal Neck: trachea midline, no thyromegaly Respiratory: normal respiratory effort, lungs clear to auscultation Cardiovascular: Rate/Rhythm: + tachycardic and + irregularly irregular Heart Sounds: no murmur Vessels: no JVD Extremities: normal capillary refill and + pedal edema (1+ b/l); no calf tenderness Chest (Breasts): Chest: normal inspection of chest (well healed prior surgical scars noted) Gastrointestinal (Abdomen): normal bowel sounds, soft, nontender, no hepatosplenomegaly Musculoskeletal: no cyanosis or clubbing, extremities motor strength 5/5 Skin: no rashes, warm and dry Neurologic: moves all extremities and awake; no focal motor deficits and not confused Speech / Cognition: normal speech Motor/Sensory: no tremor and no pronator drift Psychiatric: A+Ox3, euthymic affect Results & Data Vital Signs (Past 12 Hours) Vital Signs Temp Pulse Resp BP Pulse Ox 05/31/19 19:06 110 H 140/108 H 05/31/19 17:45 115 H 22 147/108 H 05/31/19 17:44 165 H 23 97 05/31/19 17:43 130 H 26 H 96 05/31/19 17:42 145 H 16 98 05/31/19 17:41 141 H 17 96 05/31/19 17:40 127 H 18 98 05/31/19 17:39 120 H 25 H 97 05/31/19 17:38 120 H 23 96 05/31/19 17:33 135 H 21 05/31/19 17:32 124 H 26 H 05/31/19 17:31 135 H 29 H 174/136 H 05/31/19 17:30 135 H 23 05/31/19 17:29 128 H 18 05/31/19 17:28 130 H 28 H 05/31/19 17:27 142 H 23 05/31/19 17:26 125 H 25 H 05/31/19 17:25 131 H 14 05/31/19 17:24 127 H 23 05/31/19 17:23 132 H 24 05/31/19 17:22 126 H 26 H 05/31/19 17:21 118 H 23 05/31/19 17:20 117 H 17 05/31/19 17:19 132 H 19 05/31/19 17:18 124 H 15 05/31/19 17:17 121 H 22 05/31/19 17:16 113 H 21 194/100 H 05/31/19 17:15 129 H 22 201/129 H 05/31/19 17:14 142 H 25 H 05/31/19 17:10 134 H 26 H 05/31/19 16:42 37.1 C 152 H 20 204/97 H 97 Diagnostic Findings CXR - nill acute Medications Administered Diltiazem 15mg IV, 10mg IV, IV drip titrated up to 15mg/hr IV heparin drip with bolus ECG Indication: tachycardia Rate (beats per minute): 152 Rhythm: atrial fibrillation Findings: + ST depression (anterior leads) and + T-wave inversion (inferior leads) Code Status & VTE Plan Code Status Full VTE Prophylaxis Plan VTE Prophylaxis will be ordered: Yes PG Care Time/CCT Total # of Minutes Spent Total Time Spent with Patient: Total time spent is greater than 50% in coordination of care (as documented) at patient's floor/unit and/or counseling patient: (1) Lung cancer, upper lobe Laterality: left Qualified Code(s): C34.12 - Malignant neoplasm of upper lobe, left bronchus or lung (2) Acid reflux Esophagitis presence: without esophagitis Qualified Code(s): K21.9 - Gastro- esophageal reflux disease without esophagitis
[2019-05-31] MEDS ORDERED: METOPROLOL TARTRATE 25 MG TAB PO SCH (21:00)
[2019-05-31] MEDS: ATORVASTATIN 40 MG TAB PO SCH (21:33)
[2019-05-31] MEDS: PANTOprazole 40 MG TAB PO SCH (21:33)
--- NOTE | 2019-05-31 22:06 | Emergency Department Note ---
Entered by Pia Wise acting as a scribe for History of Present Illness General Chief complaint: Hypertension Stated complaint: HIGH BP Time Seen by Provider: 05/31/19 16:52 Source: patient and RN notes reviewed History of Present Illness Onset (ago): minute(s) (prior to arrival) Location: chest Severity: similar to prior episodes Pain Consistency: + other (episode) Maximum Pain Intensity: 0 Quality: + other (heart palpitations ) Associated symptoms: + shortness of breath and + other (+dizziness; +high blood pressure) The patient is a 64 year old male, with past medical history of lung cancer and atrial fibrillation, who presents to the Emergency Room with complaints of an episode of heart palpitations that the patient experienced prior to arrival while working on his washer at home, according to the patients nurse. The RN reports the patient has history of atrial fibrillation, and she states the patient was put on Xarelto in the past due to a prior lung infection. The patient reports he has stopped taking Xarelto, but he states he now takes Plavix. The patient states he also experienced shortness of breath, dizziness, and high blood pressure during this episode of heart palpitations. He notes he has experienced multiple episodes of similar symptoms in the past, with the last episode being about a month ago. The patient states he is hydrated, but he notes that he is not hydrated as much as he should be. The patient denies recent long travel. He states his cathead operator is Dr. Sinha today. The patient denies having excess caffeine today, and he denies drinking alcohol today. The patient reports he quit smoking. Home Medications Home Medications Medication Instructions Recorded Confirmed Type aspirin 81 mg PO QAM 05/18/18 05/31/19 History atorvastatin 80 mg tablet 80 mg PO HS #30 tab 12/23/18 05/31/19 Rx clopidogrel 75 mg tablet 75 mg PO QAM #30 tab 02/20/19 05/31/19 Rx pantoprazole 40 mg tablet,delayed 40 mg PO BID #60 tab 05/09/19 05/31/19 Rx release lisinopril 40 mg PO QAM 05/31/19 05/31/19 History Allergies Allergy/AdvReac Type Severity Reaction Status Date / Time famotidine Allergy Intermediate Rash Verified 05/31/19 17:29 cilostazol AdvReac Mild pt unaware Verified 05/31/19 17:29 of this allergy- per records causes headaches Past Med/Surg History Medical History BPH (benign prostatic hyperplasia) Hyperlipidemia Hypertension Lung cancer, upper lobe PAD (peripheral artery disease) Surgical History S/P lobectomy of lung Family History Brother Lung cancer Other Family history non-contributory Social History Preferred Language: Swedish Beliefs That Will Affect Care: None Current Living Situation: Spouse Feels Safe at Home: Yes Safety Concerns: Feels Safe At This Time Smoking Status: Never smoker Tobacco Type: cigarettes ; Age Started Using Tobacco: 14 ; Age Quit Using Tobacco: 60 ; packs per day: 1.5 ; Cigarettes Per Day: 30 ; Number of Years Since Quit: 3 ; Second Hand Exposure: No ; Hx Alcohol Use: No Hx Substance Use: No Review of Systems See HPI for pertinent positives & negatives. and A total of 10 systems reviewed and were otherwise negative Physical Exam Vital Signs Vital Signs - 24 hr 05/31/19 16:42 05/31/19 17:10 05/31/19 17:14 Temperature 37.1 C Temperature Source Oral Pulse Rate 152 H 134 H 142 H Pulse Rate from SpO2 Sensor Respiratory Rate 20 26 H 25 H Respiratory Effort / Characteristics Non-Labored Respiratory Depth Normal Blood Pressure 204/97 H Blood Pressure Mean 132 Pulse Oximetry 97 Oxygen Delivery Method Room Air Sepsis Recent Fever Within 48 Hours No Sepsis Action Taken by Nursing No Action Required 05/31/19 17:15 05/31/19 17:16 05/31/19 17:17 Temperature Temperature Source Pulse Rate 129 H 113 H 121 H Pulse Rate from SpO2 Sensor Respiratory Rate 22 21 22 Respiratory Effort / Characteristics Respiratory Depth Blood Pressure 201/129 H 194/100 H Blood Pressure Mean 146 123 Pulse Oximetry Oxygen Delivery Method Sepsis Recent Fever Within 48 Hours Sepsis Action Taken by Nursing 05/31/19 17:18 05/31/19 17:19 05/31/19 17:20 Temperature Temperature Source Pulse Rate 124 H 132 H 117 H Pulse Rate from SpO2 Sensor Respiratory Rate 15 19 17 Respiratory Effort / Characteristics Respiratory Depth Blood Pressure Blood Pressure Mean Pulse Oximetry Oxygen Delivery Method Sepsis Recent Fever Within 48 Hours Sepsis Action Taken by Nursing 05/31/19 17:21 05/31/19 17:22 05/31/19 17:23 Temperature Temperature Source Pulse Rate 118 H 126 H 132 H Pulse Rate from SpO2 Sensor Respiratory Rate 23 26 H 24 Respiratory Effort / Characteristics Respiratory Depth Blood Pressure Blood Pressure Mean Pulse Oximetry Oxygen Delivery Method Sepsis Recent Fever Within 48 Hours Sepsis Action Taken by Nursing 05/31/19 17:24 05/31/19 17:25 05/31/19 17:26 Temperature Temperature Source Pulse Rate 127 H 131 H 125 H Pulse Rate from SpO2 Sensor Respiratory Rate 23 14 25 H Respiratory Effort / Characteristics Respiratory Depth Blood Pressure Blood Pressure Mean Pulse Oximetry Oxygen Delivery Method Sepsis Recent Fever Within 48 Hours Sepsis Action Taken by Nursing 05/31/19 17:27 05/31/19 17:28 05/31/19 17:29 Temperature Temperature Source Pulse Rate 142 H 130 H 128 H Pulse Rate from SpO2 Sensor Respiratory Rate 23 28 H 18 Respiratory Effort / Characteristics Respiratory Depth Blood Pressure Blood Pressure Mean Pulse Oximetry Oxygen Delivery Method Sepsis Recent Fever Within 48 Hours Sepsis Action Taken by Nursing 05/31/19 17:30 05/31/19 17:31 05/31/19 17:32 Temperature Temperature Source Pulse Rate 135 H 135 H 124 H Pulse Rate from SpO2 Sensor Respiratory Rate 23 29 H 26 H Respiratory Effort / Characteristics Respiratory Depth Blood Pressure 174/136 H Blood Pressure Mean 159 Pulse Oximetry Oxygen Delivery Method Sepsis Recent Fever Within 48 Hours Sepsis Action Taken by Nursing 05/31/19 17:33 05/31/19 17:38 05/31/19 17:39 Temperature Temperature Source Pulse Rate 135 H 120 H 120 H Pulse Rate from SpO2 Sensor 136 H 122 H Respiratory Rate 21 23 25 H Respiratory Effort / Characteristics Respiratory Depth Blood Pressure Blood Pressure Mean Pulse Oximetry 96 97 Oxygen Delivery Method Sepsis Recent Fever Within 48 Hours Sepsis Action Taken by Nursing 05/31/19 17:40 05/31/19 17:41 05/31/19 17:42 Temperature Temperature Source Pulse Rate 127 H 141 H 145 H Pulse Rate from SpO2 Sensor 116 H 132 H 125 H Respiratory Rate 18 17 16 Respiratory Effort / Characteristics Respiratory Depth Blood Pressure Blood Pressure Mean Pulse Oximetry 98 96 98 Oxygen Delivery Method Sepsis Recent Fever Within 48 Hours Sepsis Action Taken by Nursing 05/31/19 17:43 05/31/19 17:44 05/31/19 17:45 Temperature Temperature Source Pulse Rate 130 H 165 H 115 H Pulse Rate from SpO2 Sensor 138 H 128 H 112 H Respiratory Rate 26 H 23 22 Respiratory Effort / Characteristics Respiratory Depth Blood Pressure 147/108 H Blood Pressure Mean 123 Pulse Oximetry 96 97 Oxygen Delivery Method Sepsis Recent Fever Within 48 Hours Sepsis Action Taken by Nursing 05/31/19 17:46 05/31/19 18:00 05/31/19 18:01 Temperature Temperature Source Pulse Rate 127 H 128 H 141 H Pulse Rate from SpO2 Sensor 127 H 117 H 128 H Respiratory Rate 14 21 15 Respiratory Effort / Characteristics Respiratory Depth Blood Pressure 165/103 H Blood Pressure Mean 138 Pulse Oximetry 96 95 97 Oxygen Delivery Method Sepsis Recent Fever Within 48 Hours Sepsis Action Taken by Nursing 05/31/19 18:12 05/31/19 18:15 05/31/19 18:30 Temperature Temperature Source Pulse Rate 109 H 136 H 114 H Pulse Rate from SpO2 Sensor 90 109 H 108 H Respiratory Rate 16 19 21 Respiratory Effort / Characteristics Respiratory Depth Blood Pressure 164/134 H 183/140 H 155/102 H Blood Pressure Mean 139 142 123 Pulse Oximetry 97 96 96 Oxygen Delivery Method Sepsis Recent Fever Within 48 Hours Sepsis Action Taken by Nursing 05/31/19 18:45 05/31/19 18:55 05/31/19 19:00 Temperature Temperature Source Pulse Rate 109 H 127 H 115 H Pulse Rate from SpO2 Sensor Respiratory Rate 17 16 26 H Respiratory Effort / Characteristics Respiratory Depth Blood Pressure 173/119 H 134/105 H Blood Pressure Mean 132 107 Pulse Oximetry Oxygen Delivery Method Sepsis Recent Fever Within 48 Hours Sepsis Action Taken by Nursing 05/31/19 19:01 05/31/19 19:06 05/31/19 19:30 Temperature Temperature Source Pulse Rate 112 H 110 H 91 H Pulse Rate from SpO2 Sensor Respiratory Rate 32 H 26 H Respiratory Effort / Characteristics Respiratory Depth Blood Pressure 140/108 H 140/108 H 143/97 H Blood Pressure Mean 112 112 Pulse Oximetry Oxygen Delivery Method Sepsis Recent Fever Within 48 Hours Sepsis Action Taken by Nursing GENERAL: Awake, alert, well-appearing, in no distress HENT: Normocephalic, atraumatic. EYES: Normal conjunctiva. Sclera non-icteric. RESPIRATORY: Clear to auscultation. No wheezes. Normal respiratory effort. CARDIAC: Tachycardic rate. Irregular rhythm. Extremities warm and well perfused. GI: Soft, non-distended. No tenderness to palpation. N RECTAL: Deferred. MUSCULOSKELETAL: Atraumatic. Chest examination reveals no tenderness. LOWER EXTREMITIES: Calves are equal size bilaterally and non-tender. No edema NEURO: Normal sensorium. No sensory or motor deficits noted. No facial droop. SKIN: Warm and dry. No rash or jaundice noted. Course Course 1653: Past medical records reviewed. The patient was evaluated in room C7. A complete history and physical exam was performed. 1740: I reevaluated and updated the patient on his case. The patient is resting comfortably. 1846: I reviewed the patient's case with Dr. Ramsay-[facility] Hospitalist. Dr. Ramsay will evaluate the patient for further management. Consultations Consultation #1: I reviewed the patient's case with Dr. Ramsay-[facility] Hospitalist. Dr. Ramsay will evaluate the patient for further management. Time: 18:46 Administered Medications Atorvastatin Calcium (Lipitor) 80 mg PO [facility] Stop: 06/30/19 20:59 Last Admin: 05/31/19 21:33 Dose: 80 mg Documented by: [id number] Diltiazem HCl 125 mg/ Dextrose 125 mls @ 15 mls/hr IV .[id number] [facility]; Protocol Stop: 06/30/19 16:59 Last Titration: 05/31/19 21:34 Dose: 10 mg/hr, 10 mls/hr Documented by: [id number] Cosigned by: [id number] Titration: 05/31/19 18:25 Dose: 15 mg/hr, 15 mls/hr Documented by: [id number] Cosigned by: [id number] Titration: 05/31/19 18:19 Dose: 10 mg/hr, 10 mls/hr Documented by: [id number] Cosigned by: [id number] Admin: 05/31/19 17:43 Dose: 5 mg/hr, 5 mls/hr Documented by: [id number] Cosigned by: [id number] Heparin Sodium/Dextrose (Heparin Sodium/Dextrose) 25,000 units in 500 mls @ 27 mls/hr IV .[id number] [facility]; Protocol Stop: 06/30/19 18:29 Last Admin: 05/31/19 19:00 Dose: 1,350 units/hr, 27 mls/hr Documented by: [id number] Cosigned by: [id number] Pantoprazole Sodium (Protonix) 40 mg PO BID [facility] Stop: 06/30/19 20:59 Last Admin: 05/31/19 21:33 Dose: 40 mg Documented by: [id number] Discontinued Medications Diltiazem HCl (Cardizem) Confirm Administered Dose 25 mg IV .STK-MED ONE Stop: 05/31/19 16:58 Last Increment: 05/31/19 17:00 Dose: 15 mg Documented by: [id number] Cosigned by: [id number] Diltiazem HCl (Cardizem) 15 mg IV NOW STA Stop: 05/31/19 16:58 Last Admin: 05/31/19 17:00 Dose: Not Given Documented by: [id number] Diltiazem HCl (Cardizem) 10 mg IV NOW STA Stop: 05/31/19 17:40 Last Admin: 05/31/19 17:45 Dose: 10 mg Documented by: [id number] Cosigned by: [id number] Heparin Sodium (Porcine) (Heparin Sodium (Porcine)) Confirm Administered Dose 5,000 units .ROUTE .STK-MED ONE Stop: 05/31/19 18:58 Last Admin: 05/31/19 18:59 Dose: 5,000 units Documented by: [id number] Cosigned by: [id number] Heparin Sodium/Dextrose () 1 ea IV NOW STA; Protocol Stop: 05/31/19 18:17 Last Admin: 05/31/19 20:49 Dose: 1 ea Documented by: [id number] Sodium Chloride (Nss 1000ml) 1,000 mls @ 999 mls/hr IV .Q1H1M [facility] Stop: 05/31/19 18:00 Last Infusion: 05/31/19 18:31 Dose: 0 mls/hr Documented by: [id number] Admin: 05/31/19 17:01 Dose: 999 mls/hr Documented by: [id number] Magnesium Sulfate/Dextrose (Magnesium Sulfate / D5w) 1 gm in 100 mls @ 100 mls/hr IV ONE ONE Stop: 05/31/19 18:38 Last Infusion: 05/31/19 19:44 Dose: 0 mls/hr Documented by: [id number] Admin: 05/31/19 18:18 Dose: 100 mls/hr Documented by: [id number] Potassium Chloride (K Dick / Wtr) 10 meq in 100 mls @ 100 mls/hr IV NOW STA Stop: 05/31/19 18:50 Last Infusion: 05/31/19 19:44 Dose: 0 mls/hr Documented by: [id number] Admin: 05/31/19 18:19 Dose: 100 mls/hr Documented by: [id number] Magnesium Sulfate/Dextrose (Magnesium Sulfate / D5w) 1 gm in 100 mls @ 100 mls/hr IV Q1H [facility] Stop: 05/31/19 21:59 Last Infusion: 05/31/19 21:01 Dose: 0 mls/hr Documented by: [id number] Admin: 05/31/19 20:01 Dose: 100 mls/hr Documented by: [id number] Infusion: 05/31/19 20:01 Dose: 100 mls/hr Documented by: [id number] Admin: 05/31/19 19:35 Dose: 100 mls/hr Documented by: [id number] Infusion: 05/31/19 19:35 Dose: 100 mls/hr Documented by: [id number] Admin: 05/31/19 18:59 Dose: 100 mls/hr Documented by: [id number] Metoprolol Tartrate (Lopressor) 5 mg IV NOW STA Stop: 05/31/19 18:59 Last Admin: 05/31/19 19:06 Dose: 5 mg Documented by: [id number] Potassium Chloride (Klor-Con M20) 40 meq PO NOW STA Stop: 05/31/19 17:40 Last Admin: 05/31/19 18:18 Dose: 40 meq Documented by: [id number] Critical Care Time Critical Care Time: Yes Total Critical Care Time: 45 I have personally spent 45 minutes of critical care time in the direct management of this patient. This includes bedside care, interpretation of diag nostic studies, and testing, discussion with consultants, patient, and family members, and other required patient management activities. This 45 minutes is in excess of all separately billable procedures. Medical Decision Making Differential Diagnosis Differential diagnosis: Etiologies such as premature contractions, electrolyte abnormality, cardiac dysrhythmia, thyroid dysfunction, pulmonary embolism, infection, gastroi ntestinal, as well as others were entertained. Medical Records Attestation: I reviewed the patient's medical records. Home Medications Current Medication List: was personally reviewed by me Laboratory Data Attestation: I reviewed the patient's lab results. Result diagrams: 05/31/19 Unknown 05/31/19 Unknown Lab Results 05/31/19 05/31/19 Range/Units Unknown Unknown WBC 9.90 (4.8-10.8) K/uL RBC 4.79 (4.7-6.1) M/uL Hgb 15.1 (14.0-18.0) g/dL Hct 43.7 (42-52) % MCV 91.2 (80-100) fL MCH 31.5 (25-34) pg MCHC 34.6 (32-36) g/dL RDW Std Deviation 42.9 (36.4-46.3) fL RDW Coeff of Apollo 12.9 (11.5-14.5) % Plt Count 226 (130-400) K/uL MPV 10.0 (7.4-10.4) fL Immature Gran % (Auto) 0.3 % Neut % (Auto) 65.6 % Lymph % (Auto) 20.9 % Crosby % (Auto) 11.6 % Eos % (Auto) 1.4 % Baso % (Auto) 0.2 % Immature Gran # (Auto) 0.03 H (0.00-0.02) K/uL Neut # (Auto) 6.49 (1.4-6.5) K/uL Lymph # (Auto) 2.07 (1.2-3.4) K/uL Crosby # (Auto) 1.15 H (0.11-0.59) K/uL Eos # (Auto) 0.14 (0-0.5) K/uL Baso # (Auto) 0.02 (0-0.2) K/uL Sodium 140 (136-145) mmol/L Potassium 3.0 L (3.5-5.1) mmol/L Chloride 109 H (98-107) mmol/L Carbon Dioxide 26 (21-32) mmol/L Anion Gap 5.0 (3-11) BUN 8 (7-18) mg/dl Creatinine 0.80 (0.6-1.4) mg/dl Est Cr Clr Drug Dosing 94.6 ml/min Est GFR ( Amer) 107.9 Est GFR (Non-Af Amer) 93.1 BUN/Creatinine Ratio 10.4 (10-20) Glucose 129 H (70-99) mg/dl Calcium 8.8 (8.5-10.1) mg/dl Magnesium 0.9 L* (1.8-2.4) mg/dl Total Bilirubin 0.8 (0.2-1) mg/dl AST 17 (15-37) U/L ALT 32 (12-78) U/L Alkaline Phosphatase 93 (45-117) U/L Troponin I < 0.015 (0-0.045) ng/ml Total Protein 7.8 (6.4-8.2) gm/dl Albumin 3.8 (3.4-5.0) gm/dl Globulin 4.0 (2.5-4.0) gm/dl Albumin/Globulin Ratio 1.0 (0.9-2) TSH 1.070 (0.300-4.500) uIu/ml Imaging Data Radiologist's Impression: Radiology results as stated below per my review and the radiologist's interpretation: XR chest 1V portable CLINICAL HISTORY: palpitations COMPARISON STUDY: 05/18/2018 FINDINGS: The cardiac and mediastinal contours remain stable. Surgical clips are present in the left mediastinal region. There are chronic peripheral left midlung zone opacities. There is no acute parenchymal consolidation. There is no failure. There are no pleural effusions. A vague right midlung zone opacities felt to represent a summation with rib and scapula.[ IMPRESSION: Chronic postsurgical and posttreatment changes within the left lung. No acute findings. ACT 112: Negative or not required by law. Electronically signed by: Corbin Arenas M.D. 05/31/2019 5:34 PM ECG Data Attestation: I personally reviewed and interpreted this ECG as follows: Indication: + tachycardia Rate (beats per minute): 152 Rhythm: + atrial fibrillation (with RVR) ECG Intervals/blocks: + Normal QRS ECG ST segments: + ST depression (inferior lateral) Comparison ECG Date: from (07/06/19) Change: the following changes noted (now in atrial fibrillation ) Blood Pressure Blood Pressure Findings: Elevated blood pressure Blood Pressure Disposition: Referred to patients primary care provider BTEZAIDA Malave Patient is a 64 year old gentleman distant history of atrial fibrillation as well as leg vascular stents in his legs currently on aspirin Plavix presenting from his home today with onset of palpitations this afternoon. Found to be in rapid atrial fibrillation. Hypomagnesemia and hypokalemia is noted. Denies significant alcohol history. Feels palpitations but denies real chest pain. Some slight dyspnea on exertion. Denies recent illnesses. Not currently in a coagulation. Given diltiazem and start on diltiazem drip as well as heparinized here for better rate control and lower stroke risk. Troponin initially negative and EKG shows some questionable inferior lateral ST depressions likely more rate related/demand related. Potassium and magnesium were intravenously supplemented. Patient require admission for further care of his rapid A. fib and electrolyte abnormalities. Impression & Plan Atrial fibrillation with rapid ventricular response, Acute hypokalemia, Hypomagnesemia Discharge Plan Visit Data *Final* Discharge Date/Time: 05/31/19 20:00 Chief Complaint: Hypertension Stated Complaint: HIGH BP ED Provider: Koffi Sanabria Discharge Problem: Atrial fibrillation with rapid ventricular response, Acute hypokalemia, Hypomagnesemia Patient Disposition: Admitted As Inpatient Discharge Instructions Interventions: ED Discharge Assessment Last Done: 05/31/19 20:00 The tyroneibe's documentation has been prepared under my direction and personally reviewed by me in its entirety. I confirm that the note above accurately reflects all work, treatment, procedures, and medical decision making performed by me.
[2019-05-31] MEDS: METOPROLOL TARTRATE 25 MG TAB PO SCH (23:39)
[2019-06-01 01:01] LABS: Partial Thromboplastin Ratio 2.3
[2019-06-01 01:11] LABS: Partial Thromboplastin Time 62.3 Seconds (21.0-31.0)
[2019-06-01] MEDS: METOPROLOL TARTRATE 25 MG TAB PO SCH ×2 (06:04→12:11)
[2019-06-01 06:49] LABS: Hematocrit (blood only) 40.6 % (42-52); Hemoglobin 13.8 g/dL (14.0-18.0); Mean Corpuscular Hemoglobin 31.4 pg (25-34); Mean Corpuscular Volume 92.3 fL (80-100); Mean Platelet Volume 9.9 fL (7.4-10.4); Platelet Count 251 K/uL (130-400); RDW Coefficient of Variation 13.1 % (11.5-14.5); RDW Standard Deviation 43.9 fL (36.4-46.3); White Blood Count 8.92 K/uL (4.8-10.8)
[2019-06-01 07:11] LABS: Partial Thromboplastin Ratio 2.3
[2019-06-01 07:24] LABS: BUN Creatinine Ratio 14.2 (10-20); Blood Urea Nitrogen 9 mg/dl (7-18); Carbon Dioxide 25 mmol/L (21-32); Chloride 111 mmol/L (98-107); Creatinine Clr Calc Pharmacy 114.6 ml/min; Est GFR (African American) 116.8; Est GFR (Non-African American) 100.7; Glucose 141 mg/dl (70-99); Magnesium 2.1 mg/dl (1.8-2.4); Potassium 4.1 mmol/L (3.5-5.1); Sodium 140 mmol/L (136-145); Troponin I < 0.015 ng/ml (0-0.045)
[2019-06-01] MEDS: dilTIAZem HCL 125 MG in DEXTROSE 5% 100 ML IV SCH (08:04)
[2019-06-01] MEDS: PANTOprazole 40 MG TAB PO SCH ×2 (08:05→17:36)
--- NOTE | 2019-06-01 08:54 | Cardiology Consultation ---
Date of Consultation June 01, 2019 Assessment & Plan (1) Atrial fibrillation with rapid ventricular response: 2. Hypokalemia, hypomagnesemia 3. Hypertension 4. Peripheral arterial diseaseknown left SFA occlusion 5. Early stage lung cancer post left upper lobectomy 6. Dyslipidemia 7. 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 ST depressions with RVR Patient has converted back to sinus rhythm and is asymptomatic currently. Has been having intermittent episodes of palpitations for months now. No clear precipitants other than electrolyte abnormalities which have been corrected. Very low suspicion for ACS. With ST depressions on presenting EKG we will plan for outpatient stress test for further risk stratification. Recommendations: Follow-up repeat echocardiogram Will need long-term anticoagulation -- transition heparin to Eliquis today Can discontinue clopidogrel. Continue aspirin long-term. Recommend continued rate control -- can discontinue diltiazem, continue metoprolol 50 mg twice daily. Continue home lisinopril, high intensity statin. From a cardiac standpoint okay with discharge today. Can follow-up in 3 weeks. Discussion regarding stress test, additional ambulatory monitoring at that time. History of Present Illness Attending Physician: Jose Arndt History of Present Illness Mr. Camarena is a very pleasant 64-year-old man with a history of peripheral vascular disease and known left SFA occlusion post prior endovascular regimens, dyslipidemia, early lung cancer post left upper lobectomy and 2016 admitted in the setting of A. fib with RVR. Patient with prior episode of atrial fibrillation in the perioperative setting post lobectomy. Was transiently on anticoagulation for 4 weeks. No documented recurrence since that time. Has been maintained on aspirin, clopidogrel with his history of vascular disease. Yesterday patient states was fixing his washing machine when stood up became lightheaded, and developed racing in his chest. With that checked his blood pressure and stated was up to the 190s at home. Denied associated chest pain or shortness of breath. No additional presyncopal symptoms. Presented to the ED where was hypertensive up to 200s, tachycardic up to the 160s and noted to be in atrial fibrillation with RVR. EKG while in A. fib with RVR showed anterolateral ST depressions resolved with rate control. Serial troponin negative. Started on diltiazem infusion as well as p.o. metoprolol. Improved rate control overnight before conversion back to sinus rhythm at approximately 452 this morning. Does report occasional episodes of palpitations occurring at most maybe once a week lasting 10 to 15 minutes prior to event yesterday. Prior to event yesterday had been feeling well. No recent changes to his health. Remains active without claudication symptoms. Recent surveillance imaging with Dr. Nevarez has been unremarkable. Allergies Allergy/AdvReac Type Severity Reaction Status Date / Time famotidine Allergy Intermediate Rash Verified 05/31/19 17:29 cilostazol AdvReac Mild pt unaware Verified 05/31/19 17:29 of this allergy- per records causes headaches Home Medications Home Medications Medication Instructions Recorded Confirmed Type aspirin 81 mg PO QAM 05/18/18 05/31/19 History atorvastatin 80 mg tablet 80 mg PO HS #30 tab 12/23/18 05/31/19 Rx clopidogrel 75 mg tablet 75 mg PO QAM #30 tab 02/20/19 05/31/19 Rx pantoprazole 40 mg tablet,delayed 40 mg PO BID #60 tab 05/09/19 05/31/19 Rx release lisinopril 40 mg PO QAM 05/31/19 05/31/19 History Patient History Medical History BPH (benign prostatic hyperplasia) Hyperlipidemia Hypertension Lung cancer, upper lobe PAD (peripheral artery disease) Surgical History S/P lobectomy of lung Family History Brother Lung cancer Other Family history non-contributory Social History Preferred Language: Iraqi Beliefs That Will Affect Care: None Current Living Situation: Spouse Feels Safe at Home: Yes Safety Concerns: Feels Safe At This Time Smoking Status: Never smoker Tobacco Type: cigarettes ; Age Started Using Tobacco: 14 ; Age Quit Using Tobacco: 60 ; packs per day: 1.5 ; Cigarettes Per Day: 30 ; Number of Years Since Quit: 3 ; Second Hand Exposure: No ; Hx Alcohol Use: No Hx Substance Use: No Review of Systems Review of Systems: All systems reviewed & are unremarkable except as noted in HPI & below Physical Exam Physical Exam: General: Comfortable, no acute distress Eyes: Sclerae anicteric, extraocular movements intact HENT: Oropharynx clear mucous membranes moist Neck: Normal carotid upstrokes, no bruits. No JVD. Lungs: Clear to auscultation bilaterally, no rhonchi or wheezes Cardiac: Bradycardic, regular rate and rhythm, no murmurs, rubs or gallops. Vascular: 2+ radial Abdomen: Soft, nontender, nondistended, positive bowel sounds. Extremities: Well perfused, no peripheral edema Skin: No rashes or lesions. Neuro: Nonfocal Psych: Alert orient x3, normal affect and mood Results & Data Vital Signs (Past 12 Hours) Vital Signs Temp Pulse Pulse Pulse Resp BP Pulse Ox 06/01/19 06:57 98.1 F 54 L 20 131/76 94 06/01/19 03:11 97.9 F 61 19 100/63 96 05/31/19 23:52 94 H 05/31/19 22:56 97.7 F 91 H 20 144/76 H 97 PG Care Time/CCT Total # of Minutes Spent Total Time Spent with Patient: Total time spent is greater than 50% in coordination of care (as documented) at patient's floor/unit and/or counseling patient:
[2019-06-01] MEDS ORDERED: ASPIRIN 81 MG ECTAB PO SCH (09:00)
[2019-06-01] MEDS ORDERED: CLOPIDOGREL BISULFATE 75 MG TAB PO SCH (09:00)
[2019-06-01] MEDS: HEPARIN SODIUM/DEXTROSE 25,000 UNITS/500 ML BAG IV SCH (13:21)
--- NOTE | 2019-06-01 16:41 | Electrocardiogram Report ---
Test Reason : Blood Pressure : / mmHG Vent. Rate : 152 BPM Atrial Rate : 085 BPM P-R Int : 000 ms QRS Dur : 080 ms QT Int : 312 ms P-R-T Axes : 000 015 -74 degrees QTc Int : 496 ms Atrial fibrillation with rapid ventricular response Abnormal ECG When compared with ECG of 18-MAY-2018 09:17, Atrial fibrillation has replaced Sinus rhythm Vent. rate has increased BY [address] more depressed Anterior leads T wave inversion more evident in Inferior leads Confirmed by Won Parekh ([id number]) on 06/01/2019 4:41:15 PM Referred By: REFERRED SELF Confirmed By:Won Parekh
[2019-06-01] MEDS ORDERED: RIVAROXABAN 20 MG TAB PO SCH (17:00)
--- NOTE | 2019-06-01 17:17 | Electrocardiogram Report ---
Test Reason : Blood Pressure : / mmHG Vent. Rate : 074 BPM Atrial Rate : 092 BPM P-R Int : 000 ms QRS Dur : 080 ms QT Int : 410 ms P-R-T Axes : 000 016 -06 degrees QTc Int : 455 ms Atrial fibrillation Abnormal ECG When compared with ECG of 31-MAY-2019 16:49, (unconfirmed) Vent. rate has decreased BY [address] no longer depressed in Anterolateral leads T wave inversion less evident in Inferior leads Confirmed by Won Parekh ([id number]) on 06/01/2019 5:16:49 PM Referred By: REFERRED SELF Confirmed By:Won Parekh
[2019-06-01] MEDS: ATORVASTATIN 40 MG TAB PO SCH (17:36)
[2019-06-01] MEDS ORDERED: METOPROLOL SUCC 50MG EXT REL TAB PO ONE (17:45)
--- NOTE | 2019-06-07 00:30 | Discharge Summary ---
Date of Service June 01, 2019 Admission HPI Per Admitting Provider Irwin Camarena is a 64 year old male with on prior episode of provoked atrial fibrillation who presents to the ER with palpitations and dizziness. His prior episode of atrial fibrillation was in the setting of left lower lobe lobectomy 4 years ago and resolved within hours but he had be transferred to ICU at the time. He was placed on Xarelto for 4 weeks at that time and has had no known recurrence since. On this occasion his symptoms started suddenly around 4pm. In the ER he was noted to be in atrial fibrillation with rapid ventricular rate, treated with IV heparin drip and diltiazem 10mg + 15mg IV bolus and then IV drip currently running at 15mg/hr. Heart rate when seen was between 110-120 bpm. He denies any current chest pain, dizziness, shortness of breath. With regards to his hypomagnesemia he is on care home PPI use and stopped a daily multivitamin approximately 2 weeks ago. He does note a 3-4 month history of occasional chest pains at rest or on exertion in addition to occasional palpitations that wake him up at night. These have not been getting worse. He has also noticed increased fatigue over the past 2 weeks. Principal Diagnosis a. fib with RVR Discharge Exam Constitutional: WD/WN, vitals as above Eyes: + anicteric sclerae; normal pupil size ENMT: external ear and nose normal, oropharynx normal Neck: trachea midline, no thyromegaly Respiratory: normal respiratory effort, lungs clear to auscultation Cardiovascular: Rate/Rhythm: rate controlled Heart Sounds: no murmur Vessels: no JVD Extremities: normal capillary refill and + pedal edema (1+ b/l); no calf tenderness Chest (Breasts): Chest: normal inspection of chest (well healed prior surgical scars noted) Gastrointestinal (Abdomen): normal bowel sounds, soft, nontender, no hepatosplenomegaly Musculoskeletal: no cyanosis or clubbing, extremities motor strength 5/5 Skin: no rashes, warm and dry Neurologic: moves all extremities and awake; no focal motor deficits and not confused Speech / Cognition: normal speech Motor/Sensory: no tremor and no pronator drift Psychiatric: A+Ox3, euthymic affect Discharge Data Allergies Allergy/AdvReac Type Severity Reaction Status Date / Time famotidine Allergy Intermediate Rash Verified 06/05/19 13:58 cilostazol AdvReac Mild pt unaware Verified 06/05/19 13:58 of this allergy- per records causes headaches Consultations 05/31/19 20:29 Consult Cardiology Routine Hospital Course (1) Atrial fibrillation with rapid ventricular response: Second occurrence, although initial episode 4 years ago was provoked by thoracic surgery. HR 110-120 on diltiazem drip 15ml/hr therefore given x1 dose metoprolol 5mg IV Start metoprolol tartrate 25 mg Q6H and plan to wean off diltiazem drip as able to aim HR <100 Aim for rate control as unclear how long he has truly been in a. fib as having palpitations at night for some 3-4 months. Anticoagulation with heparin IV. Given PAD he has a strong likelihood of CAD, especially with ST depressions in anterior leads in setting of tachycardia. Therefore will keep him NPO after midnight in case a cardiac cath is required. Echo ordered for tomorrow hopefully when rate is better controlled. Appreciate input from cardio. Patient has converted back to sinus rhythm and is asymptomatic currently. Has been having intermittent episodes of palpitations for months now. No clear precipitants other than electrolyte abnormalities which have been corrected. Very low suspicion for ACS. With ST depressions on presenting EKG we will plan for outpatient stress test for further risk stratification. Recommendations: Follow-up repeat echocardiogram Will need long-term anticoagulation -- transition heparin to Eliquis today Can discontinue clopidogrel. Continue aspirin long-term. Recommend continued rate control -- can discontinue diltiazem, continue meto prolol Continue home lisinopril, high intensity statin. From a cardiac standpoint okay with discharge today. Can follow-up in 3 weeks. Discussion regarding stress test, additional ambulatory monitoring at that time. (2) Hypomagnesemia: Suspect related to PPI use and recent discontinuation of his daily supplement. Mg sulphate 4g IV given. (3) Acute hypokalemia: K 3.0. Replaced in ER with KCl 40 meq PO and x2 10meq IV K rider. Repeat with AM labs. (4) Abnormal EKG: Rate related ischemic changes with ST depression in anterior leads and TWI in inferior leads. Will trend troponins however low suspicion of ACS without chest pain or shortness of breath. (5) PAD (peripheral artery disease): Continue ASA and atorvastatin Will hold clopidogrel as suspect dual anticoagulation/antiplatelet therapy is adequate but this can always be restarted if felt needed by cardiology. 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 fib with RVR Activity: Resume your previous activity Non-emergency contact: Primary Care Provider Call non-emergency contact if: you have any medication questions Follow-up/Referrals: Bennie Barragan III, MD [Primary Care Provider] - Diet: Heart Healthy Addtl Attending Provider Instructions: You have been hospitalized for an acute medical problem. During your stay at [facility], we have made an effort to correct the problem that brought you to the hospital while keeping you as comfortable as possible. Medications were used to bring your condition under control and your discharge instructions will include directions for any medications you should take after leaving the hospital. Please make sure you see your Primary Care Provider as part of your follow up plan. Can follow-up in 3 weeks with cardiology. Take xarelto and metoprolol succinate in the evening. Pending Studies at Discharge: No Stand-Alone Forms: My [facility], Smoking Cessation Medications and DC Order Prescriptions: New Xarelto 20 mg Tablet 20 mg PO DAILY Qty: 30 RF: 0 metoprolol succinate 100 mg tablet extended release 24 hr 100 mg PO PM Qty: 30 RF: 0 Continued atorvastatin 80 mg tablet 80 mg PO HS Qty: 30 RF: 11 pantoprazole 40 mg tablet,delayed release (DR/EC) 40 mg PO BID Qty: 60 RF: 11 aspirin 81 mg Tablet,Delayed Release (Dr/Ec) 81 mg PO QAM RF: 0 lisinopril 40 mg tablet 40 mg PO QAM RF: 0 Discontinued clopidogrel 75 mg tablet 75 mg PO QAM Qty: 30 RF: 5 Discharge Orders: Discharge Order (Routine); Ordered 06/01/19 Ordered By: Jose Zavala/Other Patient Handouts: Rivaroxaban Oral tablet Rivaroxaban Oral tablet Admission Data Admit Date/Time: 05/31/19 19:44 Attending Provider: Jose Arndt Admit Provider: Yony Ramsay Primary Care Provider: Bennie Barragan III Other Providers: Kiran Sinha Other Interventions: Discharge Summary Assessment (RN) Last Done: 06/01/19 17:12 DC Date/Time DO NOT enter until pt leaves facility: 06/01/19 17:40
== END 2019-06-01 17:40 | disposition home or self-care (01) | DRG 309 ==
LOC: ED 16:39 → 2S 19:44 → INTOOBSV 19:44 → SUATTDRO 19:44 → 2S 20:00